=== PATIENT | female | born 1940 | race American Indian/Alaskan Native ===

== ENCOUNTER 2018-07-15 11:53 | Emergency (ER) | payer MEDICARE, OTHER ==
--- NOTE | 2018-07-15 13:38 | Emergency Department Report ---
ED General Adult HPI - General Chief complaint: Rectal Pain Stated complaint: HEMORRHOID Time Seen by Provider: 07/15/18 12:45 Source: patient, family Mode of arrival: Wheelchair Limitations: No Limitations - History of Present Illness Initial comments: Patient daughter brought her to the hospital reports patient with hemorrhoid that is chronic and hanging out and painful. She said that she wants patient to be admitted because patient has hemorrhoids and they are very painful she is also complaining that patient requires a lot of care and that she is on 1 is taking care of her and she cannot handle it and she needs to have a break so she is wondering if the patient can be admitted and treated. She said the patient was in the hospital and they should have removed her hemorrhoid but they did not and she still has hemorrhoids. She denies any rectal bleeding but reports patient with pain. Patient said pain is 10/10 and feels sore and worse with sitting or with palpation. No alleviating factor. Daughter says the patient has multiple hemorrhoid medication and pain medication at home. Patient with any vaginal bleeding or discharge. Patient denies any abdominal pain. Denies any fever or chills. Denies any cough or shortness of breath. Denies any urinary burning frequency or urgency. Patient is bilateral amputee and dependence that her daughter to take care of her. Daughter crying and so she stressed that she needs a break. MD Complaint: rectal pain due to hemorrhoid -: month(s) Location: genitals (rectum) Radiation: non-radiation Severity scale (0 -10): 10 Quality: burning, constant, other (sore) Consistency: constant Improves with: none Worsens with: other (sitting and palpation) Associated Symptoms: denies: confusion, chest pain, cough, diaphoresis, fever/ chills, headaches, loss of appetite, malaise, nausea/vomiting, rash, seizure, shortness of breath, syncope, weakness Treatments Prior to Arrival: other (pain medication and multiple hemorrhoid medication at home) - Related Data Home Medications Medication Instructions Recorded Confirmed Last Taken Folic Acid/Multivit-Min/Lutein 1 each PO DAILY 05/14/18 05/14/18 Unknown [Adult Multivitamin Gummies] Levothyroxine [Synthroid] 100 mcg PO QAM 05/14/18 05/14/18 Unknown Metoprolol Tartrate 50 mg PO DAILY 05/14/18 05/14/18 Unknown Previous Rx's Medication Instructions Recorded Last Taken Type ALBUTEROL NEB's [Proventil 0.083% 2.5 mg IH Q4HRT PRN #30 nebu 05/30/18 Unknown Rx NEBS] Aspirin [Aspirin TAB] 325 mg PO QDAY #30 tablet 05/30/18 Unknown Rx AtorvaSTATin [Lipitor] 40 mg PO QHS #30 tablet 05/30/18 Unknown Rx HYDROcodone/ACETAMINOPHEN 1 mg PO Q8HR PRN #14 tablet 05/30/18 Unknown Rx [Hydrocodone-Acetamin 10-325 mg] Ipratropium/Albuterol Sulfate 1 ampul IH Q8HRT #90 ampul.neb 05/30/18 Unknown Rx [DUONEB *Not for PRN Use*] PE/Shk Lvr/Mo/Pet,Wh [Preparation 1 applic LA Q6HR PRN #1 tube 05/30/18 Unknown Rx H] Pantoprazole [Protonix TAB] 40 mg PO QDAY #30 tablet 05/30/18 Unknown Rx Polyethylene Glycol 3350 [Miralax 17 gm PO QDAY PRN #30 powd.pack 05/30/18 Unknown Rx 3350] Allergies Allergy/AdvReac Type Severity Reaction Status Date / Time No Known Allergies Allergy Unverified 05/12/18 14:36 ED Review of Systems ROS: Stated complaint: HEMORRHOID Other details as noted in HPI Constitutional: denies: chills, fever Respiratory: denies: cough, shortness of breath, wheezing Cardiovascular: denies: chest pain, palpitations Gastrointestinal: denies: abdominal pain, nausea, vomiting, diarrhea, constipation, hematemesis, melena, hematochezia Genitourinary: other (hemorrhoids). denies: urgency, dysuria, frequency, hematuria, discharge Musculoskeletal: denies: back pain, joint swelling, arthralgia Skin: denies: rash, lesions Neurological: denies: headache, weakness ED Past Medical Hx - Past Medical History Previous Medical History?: Yes Hx Hypertension: Yes Hx Diabetes: Yes (DAUGHTER STATES TAKES METFORMIN FOR WT. LOSS ONLY-NOT DIABETIC ) Hx GERD: Yes Hx Renal Disease: Yes Hx Arthritis: Yes - Surgical History Past Surgical History?: Yes Additional Surgical History: Bilateral bilateral lower extremity amputation - Family History Family history: hypertension - Social History Smoking Status: Former Smoker Substance Use Type: None - Medications Home Medications: Home Medications Medication Instructions Recorded Confirmed Last Taken Type Folic Acid/Multivit-Min/Lutein 1 each PO DAILY 05/14/18 05/14/18 Unknown History [Adult Multivitamin Gummies] Levothyroxine [Synthroid] 100 mcg PO QAM 05/14/18 05/14/18 Unknown History Metoprolol Tartrate 50 mg PO DAILY 05/14/18 05/14/18 Unknown History ALBUTEROL NEB's [Proventil 0.083% 2.5 mg IH Q4HRT PRN #30 nebu 05/30/18 Unknown Rx NEBS] Aspirin [Aspirin TAB] 325 mg PO QDAY #30 tablet 05/30/18 Unknown Rx AtorvaSTATin [Lipitor] 40 mg PO QHS #30 tablet 05/30/18 Unknown Rx HYDROcodone/ACETAMINOPHEN 1 mg PO Q8HR PRN #14 tablet 05/30/18 Unknown Rx [Hydrocodone-Acetamin 10-325 mg] Ipratropium/Albuterol Sulfate 1 ampul IH Q8HRT #90 ampul.neb 05/30/18 Unknown Rx [DUONEB *Not for PRN Use*] PE/Shk Lvr/Mo/Pet,Wh [Preparation 1 applic LA Q6HR PRN #1 tube 05/30/18 Unknown Rx H] Pantoprazole [Protonix TAB] 40 mg PO QDAY #30 tablet 05/30/18 Unknown Rx Polyethylene Glycol 3350 [Miralax 17 gm PO QDAY PRN #30 powd.pack 05/30/18 Unknown Rx 3350] ED Physical Exam - General Limitations: No Limitations General appearance: alert, in no apparent distress - Head Head exam: Present: atraumatic, normocephalic - Neck Neck exam: Present: normal inspection - Respiratory Respiratory exam: Present: normal lung sounds bilaterally. Absent: respiratory distress - Cardiovascular Cardiovascular Exam: Present: regular rate, normal rhythm - Rectal Rectal exam: Present: other (daughter refuses inspection because she said that she wants patient to be admitted and if she is to be admitted she will take her home because she has all medications at home.) - Neurological Exam Neurological exam: Present: alert, oriented X3 - Psychiatric Psychiatric exam: Present: normal affect, normal mood ED Course Vital Signs 07/15/18 07/15/18 07/15/18 11:58 13:40 13:41 Temperature 98.1 F Pulse Rate 75 Respiratory 18 Rate Blood Pressure 105/40 Blood Pressure 110/68 [Left] O2 Sat by Pulse 97 Oximetry - Reevaluation(s) Reevaluation #1: 07/16/18 14:43 Daughter refused the patient to have a rectal exam or examine any further because she said she brought patient to the emergency room to get helped for admission because she cannot handle patient by herself at home since patient is totally dependent on her. She says that patient has hemorrhoid medication at home and she has pain medication. She was given multiple resources to follow up for help in home and for transportation home. She says she cannot get patient's to DrCelso and when she does go to a doctor to doctor juan mmped one turned the patient and he said that it did on turn patient so they are not able to look at her hemorrhoids. Patient is stable throughout ED course vital signs stable she is afebrile and nontoxic in appearance. ED Medical Decision Making - Medical Decision Making This 78-year-old female brought to the hospital by her daughter who reports that patient had hemorrhoids and she brought patient to the hospital for hemorrhoid. Patient has been here previously for care. Up and talking with her daughter she says that she is here to get patient admitted because she is tired and she thinks that the patient needs social media analyst. Patient is stable and in no acute distress. Daughter brought patient to the emergency room to be admitted because she says she is unable to take care of patient and the patient has dementia and the patient is not sleeping and she feels worn out. Patient primary care doctor is in [place] and her surgeon is in [place]. She says that when she goes to the surgeon's office for them to assess patient's hemorrhoid they can get her up on the table and the will not turn her because they said they do not do that. Denies the patient having bleeding from hemorrhoid. We discussed resources in the community and patient access services gave patient information on this social media analyst for patient to be connected for transportation. Daughter is also requesting PCP close by and I gave her referral for Dr. ASCENCIO and also . Patient has chronic hemorrhoid and daughter refused for me to do physical assessment to see her hemorrhoid. She said that she came here because she wanted patient to be admitted so patient is to be admitted so she will take patient home and she will take the information given to her and tried to involve social media analyst and get a primary care closer so Theresa will be able to take patient to her primary care doctor. She is in agreement with plan and patient discharged home and but daughter in stable condition. Vital signs are stable she is afebrile. Critical care attestation.: If time is entered above; I have spent that time in minutes in the direct care of this critically ill patient, excluding procedure time. ED Disposition Clinical Impression: Need for social media analyst intervention, External hemorrhoid Insomnia Qualifiers: Insomnia type: unspecified Qualified Code(s): G47.00 - Insomnia, unspecified Disposition: TO HOME OR SELFCARE Is pt being admited?: No Does the pt Need Aspirin: No Condition: Stable Instructions: Hemorrhoids (ED), Insomnia (ED) Additional Instructions: Please see referral to internal medicine I gave you to referral. Call tomorrow to schedule an appointment Please make sure you have patient current primary care doctor records to take to new primary care doctor. Please utilize information on social media analyst given to you. Continue to use hemorrhoid medication that you voice that you have at home for patient hemorrhoid. Referrals: PRIMARY CARE, [Primary Care Provider] - 2-3 Days LEOPOLDO HERNANDEZ MD [Staff Physician] - 2-3 Days CANDACE ASCENCIO MD [Staff Physician] - 2-3 Days [facility] [Outside] - 3-5 Days
[2018-07-15 13:41] VITALS: BP 110/68
== END 2018-07-15 14:20 | disposition home or self-care (01) ==
LOC: ED 11:53
DX: G47.00 Insomnia, unspecified (principal); K64.4 Residual hemorrhoidal skin tags; I10 Essential (primary) hypertension; E11.9 Type 2 diabetes mellitus without complications; K21.9 Gastro-esophageal reflux disease without esophagitis; M19.90 Unspecified osteoarthritis, unspecified site; Z87.891 Personal history of nicotine dependence

== ENCOUNTER 2018-07-26 15:44 | Inpatient (IN) | payer MEDICARE, OTHER ==
[2018-07-26] MEDS ORDERED: NACL 0.9% 1000 ML 1,000 ML IV ONE (17:18)
[2018-07-26 17:56] LABS: INR 1.12 (0.87-1.13); Partial Thromboplastin Time 22.1 Sec. (24.2-36.6)
[2018-07-26 18:01] LABS: Mean Corpuscular HGB Conc 29 % (30-34); Platelet Count 321 K/mm3 (140-440); Red Blood Count 2.88 M/mm3 (3.65-5.03)
[2018-07-26 18:06] LABS: Albumin 3.6 g/dL (3.9-5)
[2018-07-26 18:10] LABS: Hemoglobin 5.4 gm/dl (10.1-14.3)
[2018-07-26 18:11] LABS: Hematocrit 18.7 % (30.3-42.9); Mean Corpuscular Hemoglobin 19 pg (28-32); Mean Corpuscular Volume 65 fl (79-97); Red Cell Distribution Width 25.1 % (13.2-15.2)
[2018-07-26 19:12] LABS: Band Neutrophils # (Manual) 0.1 K/mm3; Basophils % (Manual) 0 % (0.0-1.8); Total Cells Counted 100
[2018-07-26 19:13] LABS: Anisocytosis 2+
[2018-07-26 19:14] LABS: Hypochromasia 3+; Poikilocytosis 1+
[2018-07-26 19:15] LABS: Schistocytes Few; Tear Drop Cells Few
[2018-07-26] MEDS ORDERED: NACL 0.9% 500 ML 500 ML IV ONE (19:15)
[2018-07-26 19:18] LABS: Platelet Estimate Consistent w Auto; Target Cells Few
--- NOTE | 2018-07-26 19:18 | Emergency Department Report ---
- General Chief complaint: Weakness Stated complaint: GENERAL WEAKNESS Time Seen by Provider: 07/26/18 19:05 Source: family Mode of arrival: Stretcher Limitations: Altered Mental Status - History of Present Illness Initial comments: 78-year-old female with a past medical history of hypertension, dementia, CVA with right hemiparesis and bilateral BKA secondary to PVD presents to the hospital with anemia. Patient was seen by primary care doctor Dr. Nicky Armendariz and lab work is obtained. Patient was subsequently found to have a hemoglobin of 5. Patient recently admitted to the hospital in April for altered mental status, right carotid stenosis, and was placed on aspirin and Plavix. She developed anemia during admission. GI evaluated with EGD which was negative except for hiatal hernia and she had a colonoscopy which showed a large external hemorrhoid which was snared. She received blood transfusion prior to discharge and Plavix was discontinued with plan to continue aspirin. Daughter also has several social concerns about her ability to care for the patient at home and need for senior living placement. She saw Dr. Munoz in the office recently prior to M.D. visit. Daughter states that since her discharge in April patient seems to indicate that her stomach hurt after any food or liquid intake. Severity scale (0 -10): 0 - Related Data Home Medications Medication Instructions Recorded Confirmed Last Taken Levothyroxine [Synthroid] 100 mcg PO QAM 05/14/18 05/14/18 Unknown Metoprolol Tartrate 50 mg PO DAILY 05/14/18 05/14/18 Unknown Ipratropium/Albuterol Sulfate 1 ampul IH Q8HRT PRN 07/26/18 07/26/18 Unknown [DUONEB *Not for PRN Use*] Previous Rx's Medication Instructions Recorded Last Taken Type Aspirin [Aspirin TAB] 325 mg PO QDAY #30 tablet 05/30/18 Unknown Rx HYDROcodone/ACETAMINOPHEN 1 mg PO Q8HR PRN #14 tablet 05/30/18 Unknown Rx [Hydrocodone-Acetamin 10-325 mg] Pantoprazole [Protonix TAB] 40 mg PO QDAY #30 tablet 05/30/18 Unknown Rx Allergies Allergy/AdvReac Type Severity Reaction Status Date / Time No Known Allergies Allergy Unverified 05/12/18 14:36 ED Review of Systems ROS: Stated complaint: GENERAL WEAKNESS Other details as noted in HPI Comment: All other systems reviewed and negative ED Past Medical Hx - Past Medical History Hx Hypertension: Yes Hx Diabetes: Yes (DAUGHTER STATES TAKES METFORMIN FOR WT. LOSS ONLY-NOT DIABETIC ) Hx GERD: Yes Hx Renal Disease: Yes Hx Arthritis: Yes - Surgical History Additional Surgical History: Bilateral bilateral lower extremity amputation - Social History Smoking Status: Never Smoker Substance Use Type: None - Medications Home Medications: Home Medications Medication Instructions Recorded Confirmed Last Taken Type Levothyroxine [Synthroid] 100 mcg PO QAM 05/14/18 05/14/18 Unknown History Metoprolol Tartrate 50 mg PO DAILY 05/14/18 05/14/18 Unknown History Aspirin [Aspirin TAB] 325 mg PO QDAY #30 tablet 05/30/18 Unknown Rx HYDROcodone/ACETAMINOPHEN 1 mg PO Q8HR PRN #14 tablet 05/30/18 Unknown Rx [Hydrocodone-Acetamin 10-325 mg] Pantoprazole [Protonix TAB] 40 mg PO QDAY #30 tablet 05/30/18 Unknown Rx Ipratropium/Albuterol Sulfate 1 ampul IH Q8HRT PRN 07/26/18 07/26/18 Unknown History [DUONEB *Not for PRN Use*] ED Physical Exam - General Limitations: Altered Mental Status - Other Other exam information: General: No limitations, patient is alert in no acute distress Head exam: Atraumatic, normocephalic Eyes exam: Normal appearance, ENT: Moist mucous membrane, normal oropharynx Neck exam: Normal inspection, full range of motion, no meningismus nontender Respiratory exam: Clear to auscultation bilateral, no wheezes, rales, crackles Cardiovascular: Normal rate and rhythm, normal heart sounds Abdomen: Soft, nondistended, and nontender, with normal bowel sounds, no rebound, or guarding Rectal: External hemorrhoid without bleeding. Brown stool. Guaiac positive without gross blood or melena Extremity: Bilateral AKA Back: Normal Inspection, full range of motion, no tenderness Neurologic: Demented, chronic right-sided weakness Psychiatric: normal affect, normal mood Skin: Warm, dry, intact ED Course Vital Signs 07/26/18 07/26/18 07/26/18 16:58 17:14 19:15 Temperature 98.3 F 98.3 F 97.9 F Pulse Rate 71 71 70 Respiratory 20 20 16 Rate Blood Pressure 106/42 Blood Pressure 106/42 148/45 [Left] O2 Sat by Pulse 100 100 99 Oximetry ED Medical Decision Making - Lab Data Result diagrams: 07/26/18 17:34 07/26/18 17:34 Lab Results 07/26/18 07/26/18 07/26/18 Range/Units 17:32 17:34 17:34 WBC 12.9 H (4.5-11.0) K/mm3 RBC 2.88 L (3.65-5.03) M/mm3 Hgb 5.4 L* (10.1-14.3) gm/dl Hct 18.7 L* (30.3-42.9) % MCV 65 L (79-97) fl MCH 19 L (28-32) pg MCHC 29 L (30-34) % RDW 25.1 H (13.2-15.2) % Plt Count 321 (140-440) K/mm3 Lymph % (Auto) [employer] Permit Agent [place] % (Auto) [employer]ing Permit Agent Eos % (Auto) [employer] Permit Agent Baso % (Auto) [employer] Permit Agent Lymph # [employer] Permit Agent [place] # [employer] Permit Agent Eos # [employer] Permit Agent Baso # [employer] Permit Agent Add Manual Diff Complete Total Counted 100 Seg Neutrophils % [employer] Permit Agent Seg Neuts % (Manual) 80.0 H (40.0-70.0) % Band Neutrophils % 1.0 % Lymphocytes % (Manual) 13.0 L (13.4-35.0) % Reactive Lymphs % (Man) 0 % Monocytes % (Manual) 4.0 (0.0-7.3) % Eosinophils % (Manual) 2.0 (0.0-4.3) % Basophils % (Manual) 0 (0.0-1.8) % Metamyelocytes % 0 % Myelocytes % 0 % Promyelocytes % 0 % Blast Cells % 0 % Nucleated RBC % 1.0 H (0.0-0.9) % Seg Neutrophils # [employer] Permit Agent Seg Neutrophils # Man 10.3 H (1.8-7.7) K/mm3 Band Neutrophils # 0.1 K/mm3 Lymphocytes # (Manual) 1.7 (1.2-5.4) K/mm3 Abs React Lymphs (Man) 0.0 K/mm3 Monocytes # (Manual) 0.5 (0.0-0.8) K/mm3 Eosinophils # (Manual) 0.3 (0.0-0.4) K/mm3 Basophils # (Manual) 0.0 (0.0-0.1) K/mm3 Metamyelocytes # 0.0 K/mm3 Myelocytes # 0.0 K/mm3 Promyelocytes # 0.0 K/mm3 Blast Cells # 0.0 K/mm3 WBC Morphology Not Reportable Hypersegmented Neuts Not Reportable Hyposegmented Neuts Not Reportable Hypogranular Neuts Not Reportable Smudge Cells Not Reportable Toxic Granulation Not Reportable Toxic Vacuolation Not Reportable Dohle Bodies Not Reportable Pelger-Huet Anomaly Not Reportable Bharti Rods Not Reportable Platelet Estimate Consistent w auto Clumped Platelets Not Reportable Plt Clumps, EDTA Not Reportable Large Platelets Not Reportable Giant Platelets Not Reportable Platelet Satelliting Not Reportable Plt Morphology Comment Not Reportable RBC Morphology Not Reportable Dimorphic RBCs Not Reportable Polychromasia Few Hypochromasia 3+ Poikilocytosis 1+ Anisocytosis 2+ Microcytosis 3+ Macrocytosis Not Reportable Spherocytes Not Reportable Pappenheimer Bodies Not Reportable Sickle Cells Not Reportable Target Cells Few Tear Drop Cells Few Ovalocytes Not Reportable Helmet Cells Not Reportable [place] Bodies Not Reportable [place] Rings Not Reportable [place] Cells Not Reportable Bite Cells Not Reportable Crenated Cell Not Reportable Elliptocytes 1+ Acanthocytes (Spur) Not Reportable Rouleaux Not Reportable Hemoglobin C Crystals Not Reportable Schistocytes Few Malaria parasites Not Reportable Lui Bodies Not Reportable Hem Pathologist Commnt No PT 15.0 H (12.2-14.9) Sec. INR 1.12 (0.87-1.13) APTT 22.1 L (24.2-36.6) Sec. Sodium (137-145) mmol/L Potassium (3.6-5.0) mmol/L Chloride (98-107) mmol/L Carbon Dioxide (22-30) mmol/L Anion Gap mmol/L BUN (7-17) mg/dL Creatinine (0.7-1.2) mg/dL Estimated GFR ml/min BUN/Creatinine Ratio % Glucose (65-100) mg/dL Calcium (8.4-10.2) mg/dL Total Bilirubin (0.1-1.2) mg/dL AST (5-40) units/L ALT (7-56) units/L Alkaline Phosphatase (35-129) units/L Total Protein (6.3-8.2) g/dL Albumin (3.9-5) g/dL Albumin/Globulin Ratio % Blood Type A POSITIVE Antibody Screen Negative Crossmatch See Detail 07/26/18 Range/Units 17:34 WBC (4.5-11.0) K/mm3 RBC (3.65-5.03) M/mm3 Hgb (10.1-14.3) gm/dl Hct (30.3-42.9) % MCV (79-97) fl MCH (28-32) pg MCHC (30-34) % RDW (13.2-15.2) % Plt Count (140-440) K/mm3 Lymph % (Auto) [place] % (Auto) Eos % (Auto) Baso % (Auto) Lymph # [place] # Eos # Baso # Add Manual Diff Total Counted Seg Neutrophils % Seg Neuts % (Manual) (40.0-70.0) % Band Neutrophils % % Lymphocytes % (Manual) (13.4-35.0) % Reactive Lymphs % (Man) % Monocytes % (Manual) (0.0-7.3) % Eosinophils % (Manual) (0.0-4.3) % Basophils % (Manual) (0.0-1.8) % Metamyelocytes % % Myelocytes % % Promyelocytes % % Blast Cells % % Nucleated RBC % (0.0-0.9) % Seg Neutrophils # Seg Neutrophils # Man (1.8-7.7) K/mm3 Band Neutrophils # K/mm3 Lymphocytes # (Manual) (1.2-5.4) K/mm3 Abs React Lymphs (Man) K/mm3 Monocytes # (Manual) (0.0-0.8) K/mm3 Eosinophils # (Manual) (0.0-0.4) K/mm3 Basophils # (Manual) (0.0-0.1) K/mm3 Metamyelocytes # K/mm3 Myelocytes # K/mm3 Promyelocytes # K/mm3 Blast Cells # K/mm3 WBC Morphology Hypersegmented Neuts Hyposegmented Neuts Hypogranular Neuts Smudge Cells Toxic Granulation Toxic Vacuolation Dohle Bodies Pelger-Huet Anomaly Bharti Rods Platelet Estimate Clumped Platelets Plt Clumps, EDTA Large Platelets Giant Platelets Platelet Satelliting Plt Morphology Comment RBC Morphology Dimorphic RBCs Polychromasia Hypochromasia Poikilocytosis Anisocytosis Microcytosis Macrocytosis Spherocytes Pappenheimer Bodies Sickle Cells Target Cells Tear Drop Cells Ovalocytes Helmet Cells [place] Bodies [place] Rings [place] Cells Bite Cells Crenated Cell Elliptocytes Acanthocytes (Spur) Rouleaux Hemoglobin C Crystals Schistocytes Malaria parasites Lui Bodies Hem Pathologist Commnt PT (12.2-14.9) Sec. INR (0.87-1.13) APTT (24.2-36.6) Sec. Sodium 138 (137-145) mmol/L Potassium 4.5 (3.6-5.0) mmol/L Chloride 103.2 (98-107) mmol/L Carbon Dioxide 22 (22-30) mmol/L Anion Gap 17 mmol/L BUN 53 H (7-17) mg/dL Creatinine 1.8 H (0.7-1.2) mg/dL Estimated GFR 33 ml/min BUN/Creatinine Ratio 29 % Glucose 123 H (65-100) mg/dL Calcium 10.0 (8.4-10.2) mg/dL Total Bilirubin 0.60 (0.1-1.2) mg/dL AST 23 (5-40) units/L ALT 26 (7-56) units/L Alkaline Phosphatase 90 (35-129) units/L Total Protein 7.5 (6.3-8.2) g/dL Albumin 3.6 L (3.9-5) g/dL Albumin/Globulin Ratio 0.9 % Blood Type Antibody Screen Crossmatch - EKG Data -: EKG Interpreted by [place] EKG shows normal: sinus rhythm, axis (qrs 27), QRS complexes (qrsd 92), ST-T waves (no stemi/t inv) Rate: normal (27) - Medical Decision Making Plan to admit this to the hospital for blood transfusion. 2 units of PRBCs ordered. Positive stool without gross blood or melena. GI consultation ordered. Patient also noted to have worsening renal function. Daughter states is social concerns regarding possible senior living placement which she says has been initiated by her PMD - Differential Diagnosis gi bleed and iron deficiency anemia, anemia of chronic disease Critical Care Time: No Critical care attestation.: If time is entered above; I have spent that time in minutes in the direct care of this critically ill patient, excluding procedure time. ED Disposition Clinical Impression: Anemia, Dementia, Need for renal social worker intervention, Guaiac positive stools , External hemorrhoid, Diabetes, Acute kidney insufficiency Disposition: OP ADMIT IP TO THIS HOSP Is pt being admited?: Yes Condition: Stable Time of Disposition: 19:18 (Dr Zacarias/hosp)
[2018-07-26] MEDS ORDERED: NACL 0.9% 500 ML 500 ML ONE (20:20)
[2018-07-26] MEDS ORDERED: TYLENOL PO PRN ×2 (22:55→22:59)
[2018-07-26] MEDS ORDERED: ZOFRAN IV PRN ×2 (22:55→22:59)
[2018-07-26] MEDS ORDERED: AMBIEN PO PRN (22:55)
[2018-07-26] MEDS ORDERED: MORPHINE IV PRN (22:55)
[2018-07-26] MEDS ORDERED: DILAUDID IV PRN (22:55)
--- NOTE | 2018-07-26 22:55 | History and Physical Report ---
History of Present Illness Date of examination: 07/26/18 Date of admission: 07/26/18 19:28 Chief complaint: cc Low hemoglobin count of 5--sent from PCP office History of present illness: History of Present Illness 78-year-old female with a past medical history of hypertension, dementia, CVA with right hemiparesis and bilateral BKA secondary to PVD presents to the hospital with anemia. Patient was seen by primary care doctor Dr. Nicky Armendariz and lab work is obtained. Patient was subsequently found to have a hemoglobin of 5. Patient recently admitted to the hospital in April for altered mental status, right carotid stenosis, and was placed on aspirin and Plavix. She developed anemia during admission. GI evaluated with EGD which was negative except for hiatal hernia and she had a colonoscopy which showed a large external hemorrhoid which was snared. She received blood transfusion prior to discharge and Plavix was discontinued with plan to continue aspirin. Daughter also has several social concerns about her ability to care for the patient at home and need for fpc placement. She saw Dr. Munoz in the office recently prior to M.D. visit. Daughter states that since her discharge in April patient seems to indicate that her stomach hurt after any food or liquid intake. Past Medical History Hx Hypertension: Yes Hx Diabetes: Yes (DAUGHTER STATES TAKES METFORMIN FOR WT. LOSS ONLY-NOT DIABETIC ) Hx GERD: Yes Hx Renal Disease: Yes Hx Arthritis: Yes Surgical History Additional Surgical History: Bilateral bilateral lower extremity amputation Social History Smoking Status: Never Smoker Substance Use Type: None Family history Htn - Medications Home Medications: Home Medications Medication Instructions Recorded Confirmed Last Taken Type Levothyroxine [Synthroid] 100 mcg PO QAM 05/14/18 05/14/18 Unknown History Metoprolol Tartrate 50 mg PO DAILY 05/14/18 05/14/18 Unknown History Aspirin [Aspirin TAB] 325 mg PO QDAY #30 tablet 05/30/18 Unknown Rx HYDROcodone/ACETAMINOPHEN 1 mg PO Q8HR PRN #14 tablet 05/30/18 Unknown Rx [Hydrocodone-Acetamin 10-325 mg] Pantoprazole [Protonix TAB] 40 mg PO QDAY #30 tablet 05/30/18 Unknown Rx Ipratropium/Albuterol Sulfate 1 ampul IH Q8HRT PRN 07/26/18 07/26/18 Unknown History [DUONEB *Not for PRN Use*] Review of Systems ROS: Stated complaint: GENERAL WEAKNESS Other details as noted in HPI Comment: All other systems reviewed and negative Medications and Allergies Allergies Allergy/AdvReac Type Severity Reaction Status Date / Time No Known Allergies Allergy Unverified 05/12/18 14:36 Home Medications Medication Instructions Recorded Confirmed Last Taken Type Levothyroxine [Synthroid] 100 mcg PO QAM 05/14/18 07/26/18 Unknown History Metoprolol Tartrate 50 mg PO DAILY 05/14/18 07/26/18 Unknown History Aspirin [Aspirin TAB] 325 mg PO QDAY #30 tablet 05/30/18 07/26/18 Unknown Rx HYDROcodone/ACETAMINOPHEN 1 mg PO Q8HR PRN #14 tablet 05/30/18 07/26/18 Unknown Rx [Hydrocodone-Acetamin 10-325 mg] Pantoprazole [Protonix TAB] 40 mg PO QDAY #30 tablet 05/30/18 07/26/18 Unknown Rx Ipratropium/Albuterol Sulfate 1 ampul IH Q8HRT PRN 07/26/18 07/26/18 Unknown History [DUONEB *Not for PRN Use*] Mirtazapine 30 mg PO QHS 07/26/18 07/26/18 Unknown History Triamter/Hctz 37.5-25 mg 1 tab PO QDAY 07/26/18 07/26/18 Unknown History [Maxzide-25] Exam - Constitutional Vitals: Temp Pulse Resp BP Pulse Ox 97.9 F 68 16 124/51 98 07/26/18 22:00 07/26/18 22:00 07/26/18 22:00 07/26/18 22:00 07/26/18 22:00 General appearance: Present: no acute distress, well-nourished - EENT Eyes: Present: PERRL ENT: hearing intact, clear oral mucosa - Neck Neck: Present: supple, normal ROM - Respiratory Respiratory effort: normal Respiratory: bilateral: CTA - Cardiovascular Heart rate: 63 Rhythm: regular Heart Sounds: Present: S1 & S2. Absent: rub, click - Extremities Extremities: no ischemia, pulses intact, pulses symmetrical, No edema, abnormal (bilaterally Above knee amputation) Peripheral Pulses: within normal limits - Abdominal General gastrointestinal: Present: soft, non-tender, non-distended, normal bowel sounds Female genitourinary: Present: normal - Rectal Rectal Exam: deferred, other (occult blood positive) - Integumentary Integumentary: Present: clear, warm, dry - Musculoskeletal Musculoskeletal: gait normal, strength equal bilaterally - Psychiatric Psychiatric: appropriate mood/affect, intact judgment & insight - Neurologic Neurologic: CNII-XII intact, moves all extremities - Allied Health Allied health notes reviewed: nursing, case management Results - Labs CBC & Chem 7: 07/26/18 17:34 07/26/18 17:34 Labs: Laboratory Last Values WBC 12.9 K/mm3 (4.5-11.0) H 07/26/18 17:34 RBC 2.88 M/mm3 (3.65-5.03) L 07/26/18 17:34 Hgb 5.4 gm/dl (10.1-14.3) L* 07/26/18 17:34 Hct 18.7 % (30.3-42.9) L* 07/26/18 17:34 MCV 65 fl (79-97) L 07/26/18 17:34 MCH 19 pg (28-32) L 07/26/18 17:34 MCHC 29 % (30-34) L 07/26/18 17:34 RDW 25.1 % (13.2-15.2) H 07/26/18 17:34 Plt Count 321 K/mm3 (140-440) 07/26/18 17:34 Lymph % (Auto) Chipper Operator 07/26/18 17:34 Kerr % (Auto) Chipper Operator 07/26/18 17:34 Eos % (Auto) Chipper Operator 07/26/18 17:34 Baso % (Auto) Chipper Operator 07/26/18 17:34 Lymph # Chipper Operator 07/26/18 17:34 Kerr # Chipper Operator 07/26/18 17:34 Eos # Chipper Operator 07/26/18 17:34 Baso # Chipper Operator 07/26/18 17:34 Add Manual Diff Complete 07/26/18 17:34 Total Counted 100 07/26/18 17:34 Seg Neutrophils % Chipper Operator 07/26/18 17:34 Seg Neuts % (Manual) 80.0 % (40.0-70.0) H 07/26/18 17:34 Band Neutrophils % 1.0 % 07/26/18 17:34 Lymphocytes % (Manual) 13.0 % (13.4-35.0) L 07/26/18 17:34 Reactive Lymphs % (Man) 0 % 07/26/18 17:34 Monocytes % (Manual) 4.0 % (0.0-7.3) 07/26/18 17:34 Eosinophils % (Manual) 2.0 % (0.0-4.3) 07/26/18 17:34 Basophils % (Manual) 0 % (0.0-1.8) 07/26/18 17:34 Metamyelocytes % 0 % 07/26/18 17:34 Myelocytes % 0 % 07/26/18 17:34 Promyelocytes % 0 % 07/26/18 17:34 Blast Cells % 0 % 07/26/18 17:34 Nucleated RBC % 1.0 % (0.0-0.9) H 07/26/18 17:34 Seg Neutrophils # Chipper Operator 07/26/18 17:34 Seg Neutrophils # Man 10.3 K/mm3 (1.8-7.7) H 07/26/18 17:34 Band Neutrophils # 0.1 K/mm3 07/26/18 17:34 Lymphocytes # (Manual) 1.7 K/mm3 (1.2-5.4) 07/26/18 17:34 Abs React Lymphs (Man) 0.0 K/mm3 07/26/18 17:34 Monocytes # (Manual) 0.5 K/mm3 (0.0-0.8) 07/26/18 17:34 Eosinophils # (Manual) 0.3 K/mm3 (0.0-0.4) 07/26/18 17:34 Basophils # (Manual) 0.0 K/mm3 (0.0-0.1) 07/26/18 17:34 Metamyelocytes # 0.0 K/mm3 07/26/18 17:34 Myelocytes # 0.0 K/mm3 07/26/18 17:34 Promyelocytes # 0.0 K/mm3 07/26/18 17:34 Blast Cells # 0.0 K/mm3 07/26/18 17:34 WBC Morphology Not Reportable 07/26/18 17:34 Hypersegmented Neuts Not Reportable 07/26/18 17:34 Hyposegmented Neuts Not Reportable 07/26/18 17:34 Hypogranular Neuts Not Reportable 07/26/18 17:34 Smudge Cells Not Reportable 07/26/18 17:34 Toxic Granulation Not Reportable 07/26/18 17:34 Toxic Vacuolation Not Reportable 07/26/18 17:34 Dohle Bodies Not Reportable 07/26/18 17:34 Pelger-Huet Anomaly Not Reportable 07/26/18 17:34 Bharti Rods Not Reportable 07/26/18 17:34 Platelet Estimate Consistent w auto 07/26/18 17:34 Clumped Platelets Not Reportable 07/26/18 17:34 Plt Clumps, EDTA Not Reportable 07/26/18 17:34 Large Platelets Not Reportable 07/26/18 17:34 Giant Platelets Not Reportable 07/26/18 17:34 Platelet Satelliting Not Reportable 07/26/18 17:34 Plt Morphology Comment Not Reportable 07/26/18 17:34 RBC Morphology Not Reportable 07/26/18 17:34 Dimorphic RBCs Not Reportable 07/26/18 17:34 Polychromasia Few 07/26/18 17:34 Hypochromasia 3+ 07/26/18 17:34 Poikilocytosis 1+ 07/26/18 17:34 Anisocytosis 2+ 07/26/18 17:34 Microcytosis 3+ 07/26/18 17:34 Macrocytosis Not Reportable 07/26/18 17:34 Spherocytes Not Reportable 07/26/18 17:34 Pappenheimer Bodies Not Reportable 07/26/18 17:34 Sickle Cells Not Reportable 07/26/18 17:34 Target Cells Few 07/26/18 17:34 Tear Drop Cells Few 07/26/18 17:34 Ovalocytes Not Reportable 07/26/18 17:34 Helmet Cells Not Reportable 07/26/18 17:34 Vidal-Accident Bodies Not Reportable 07/26/18 17:34 [place] Rings Not Reportable 07/26/18 17:34 [place] Cells Not Reportable 07/26/18 17:34 Bite Cells Not Reportable 07/26/18 17:34 Crenated Cell Not Reportable 07/26/18 17:34 Elliptocytes 1+ 07/26/18 17:34 Acanthocytes (Spur) Not Reportable 07/26/18 17:34 Rouleaux Not Reportable 07/26/18 17:34 Hemoglobin C Crystals Not Reportable 07/26/18 17:34 Schistocytes Few 07/26/18 17:34 Malaria parasites Not Reportable 07/26/18 17:34 Lui Bodies Not Reportable 07/26/18 17:34 Hem Pathologist Commnt No 07/26/18 17:34 PT 15.0 Sec. (12.2-14.9) H 07/26/18 17:34 INR 1.12 (0.87-1.13) 07/26/18 17:34 APTT 22.1 Sec. (24.2-36.6) L 07/26/18 17:34 Sodium 138 mmol/L (137-145) 07/26/18 17:34 Potassium 4.5 mmol/L (3.6-5.0) 07/26/18 17:34 Chloride 103.2 mmol/L (98-107) 07/26/18 17:34 Carbon Dioxide 22 mmol/L (22-30) 07/26/18 17:34 Anion Gap 17 mmol/L 07/26/18 17:34 BUN 53 mg/dL (7-17) H 07/26/18 17:34 Creatinine 1.8 mg/dL (0.7-1.2) H 07/26/18 17:34 Estimated GFR 33 ml/min 07/26/18 17:34 BUN/Creatinine Ratio 29 % 07/26/18 17:34 Glucose 123 mg/dL (65-100) H 07/26/18 17:34 Calcium 10.0 mg/dL (8.4-10.2) 07/26/18 17:34 Total Bilirubin 0.60 mg/dL (0.1-1.2) 07/26/18 17:34 AST 23 units/L (5-40) 07/26/18 17:34 ALT 26 units/L (7-56) 07/26/18 17:34 Alkaline Phosphatase 90 units/L (35-129) 07/26/18 17:34 Total Protein 7.5 g/dL (6.3-8.2) 07/26/18 17:34 Albumin 3.6 g/dL (3.9-5) L 07/26/18 17:34 Albumin/Globulin Ratio 0.9 % 09/27/18 17:34 Blood Type A POSITIVE 07/26/18 17:32 Antibody Screen Negative 07/26/18 17:32 Crossmatch See Detail 07/26/18 17:32 - Imaging and Cardiology EKG: report reviewed (normal sinus rhythm and heart rate of 63/m) Assessment and Plan Advance Directives: Yes (full code) VTE prophylaxis?: Mechanical Plan of care discussed with patient/family: Yes - Patient Problems (1) Symptomatic anemia Current Visit: Yes Status: Acute Plan to address problem: Transfuse 2 units of blood-padded blood cells Patient had GI workup recently Will defer to gastroenterology IV Protonix started (2) Acute kidney injury Current Visit: Yes Status: Acute Plan to address problem: IV fluids for now Vasomotor nephropathy (3) Hypertension Current Visit: Yes Status: Chronic Qualifiers: Hypertension type: essential hypertension Qualified Code(s): I10 - Essential (primary) hypertension Plan to address problem: We will initiate on Catapres patch Hold her oral antihypertensives (4) Hypothyroidism Current Visit: Yes Status: Chronic Qualifiers: Hypothyroidism type: acquired Qualified Code(s): E03.9 - Hypothyroidism, unspecified Plan to address problem: Hold Synthroid for a couple of days. If necessary give IV thyroxine (5) COPD (chronic obstructive pulmonary disease) Current Visit: Yes Status: Chronic Qualifiers: COPD type: unspecified COPD Qualified Code(s): J44.9 - Chronic obstructive pulmonary disease, unspecified Plan to address problem: Continue duo nebs (6) DVT prophylaxis Current Visit: Yes Status: Acute Plan to address problem: SCDs GI prophylaxis
[2018-07-26] MEDS ORDERED: DUONEB *Not for PRN Use IH (22:56)
[2018-07-26] MEDS ORDERED: SODIUM CHLORIDE FLUSH SYRINGE 10 ML IV PRN (22:59)
[2018-07-26] MEDS ORDERED: NACL 0.9% 1000 ML 1,000 ML IV SCH (23:00)
[2018-07-26] MEDS ORDERED: PROVENTIL IH PRN (23:24)
[2018-07-27] MEDS: HumaLOG SUB-Q SCH ×3 (00:48→13:00)
[2018-07-27 05:52] LABS: Hematocrit 26.2 % (30.3-42.9); Hemoglobin 8.3 gm/dl (10.1-14.3); Mean Corpuscular HGB Conc 32 % (30-34); Mean Corpuscular Volume 71 fl (79-97); Platelet Count 266 K/mm3 (140-440); Red Blood Count 3.69 M/mm3 (3.65-5.03)
[2018-07-27] MEDS: NACL 0.9% 1000 ML 1,000 ML IV SCH (05:54)
[2018-07-27 05:56] LABS: Mean Corpuscular Hemoglobin 23 pg (28-32); Red Cell Distribution Width 25.2 % (13.2-15.2)
[2018-07-27 06:25] LABS: Albumin 3.5 g/dL (3.9-5); Calcium 9.8 mg/dL (8.4-10.2)
[2018-07-27 08:01] LABS: Eosinophils % (Manual) 0 % (0.0-4.3); Total Cells Counted 100
[2018-07-27 08:02] LABS: Acanthocytes Rare; Anisocytosis 1+; Hypochromasia 1+; Poikilocytosis 1+
[2018-07-27 08:05] LABS: Ovalocytes Rare; Platelet Estimate Consistent w Auto; Tear Drop Cells Rare
[2018-07-27] MEDS ORDERED: SODIUM CHLORIDE FLUSH SYRINGE 10 ML IV SCH ×2 (10:00)
[2018-07-27] MEDS ORDERED: CATAPRES-TTS PATCH TD SCH (10:00)
--- NOTE | 2018-07-27 10:50 | Gastroenterology Consultation ---
<AQUILES PETER - Last Filed: 07/27/18 11:32> History of Present Illness - Reason for Consult Consult date: 07/27/18 anemia Requesting physician: MARY CARMEN BOLAND - History of Present Illness Patient is a 78 y/o female with PMH of HTN, arthritis, DM, dementia, PVD (s/p bilateral BKA), and recent CVA due to carotid stenosis with right endarterectomy on 05/23/18 who was sent from PCP office for evaluation after routine blood work revealed a hemoglobin of 5 to which GI has been consulted. This morning patient was resting in bed w/o acute distress but noted to be somnolent and confused with inability to provide history. History was obtained via chart review and by daughter who was at the bedside. Daughter states patient 's mental status has been declining recently to the point where she is having difficulty eating with noted choking with solids but drinks liquids (ensure) w/ o any complaints. She reports patient having some rectal bleeding with bright red blood a few days after hospitalization in April/May secondary to an external hemorrhoid that has since resolved after treatment with suppositories with no signs of active bleeding recently. No hematemesis or melena. States her mother previously had c/o abd pain but no N/V, diarrhea, or constipation. Abd CT 05/27 unremarkable. Patient is previously known to our service for similar symptoms with undergoing an EGD on 05/28/18 and a colonoscopy on 05/30/18 that did not reveal a source of bleeding. Takes Plavix and ASA at home with last dose yesterday. No active bleeding since admission per nursing. Upon exam, there was brown stool noted in diaper and a large external hemorrhoid w/o bleeding. Past History Past Medical History: arthritis, diabetes, hypertension, PVD, stroke, other ( dementia) Past Surgical History: cholecystectomy, hysterectomy, Other (BLE Amputation, right endarterectomy on 05/23/18) Social history: lives with family. denies: smoking, alcohol abuse Medications and Allergies Allergies Allergy/AdvReac Type Severity Reaction Status Date / Time No Known Allergies Allergy Unverified 05/12/18 14:36 Home Medications Medication Instructions Recorded Confirmed Last Taken Type Levothyroxine [Synthroid] 100 mcg PO QAM 05/14/18 07/26/18 Unknown History Metoprolol Tartrate 50 mg PO DAILY 05/14/18 07/26/18 Unknown History Aspirin [Aspirin TAB] 325 mg PO QDAY #30 tablet 05/30/18 07/26/18 Unknown Rx HYDROcodone/ACETAMINOPHEN 1 mg PO Q8HR PRN #14 tablet 05/30/18 07/26/18 Unknown Rx [Hydrocodone-Acetamin 10-325 mg] Pantoprazole [Protonix TAB] 40 mg PO QDAY #30 tablet 05/30/18 07/26/18 Unknown Rx Ipratropium/Albuterol Sulfate 1 ampul IH Q8HRT PRN 07/26/18 07/26/18 Unknown History [DUONEB *Not for PRN Use*] Mirtazapine 30 mg PO QHS 07/26/18 07/26/18 Unknown History Triamter/Hctz 37.5-25 mg 1 tab PO QDAY 07/26/18 07/26/18 Unknown History [Maxzide-25] Active Meds: Active Medications Acetaminophen (Tylenol) 650 mg PO Q4H PRN PRN Reason: Pain MILD(1-3)/Fever >100.5/SCANLON Albuterol (Proventil) 2.5 mg IH Q4HRT PRN PRN Reason: Shortness Of Breath Clonidine HCl (Catapres-Tts Patch) 0.2 mg TD Fr AIDA Hydromorphone HCl (Dilaudid) 0.5 mg IV Q3H PRN PRN Reason: Pain , Severe (7-10) Last Admin: 07/27/18 00:58 Dose: 0.5 mg Sodium Chloride (Nacl 0.9% 1000 Ml) 1,000 mls @ 75 mls/hr IV DIRECT AIDA Last Admin: 07/27/18 05:54 Dose: 75 mls/hr Insulin Human Lispro (Humalog) 0 unit SUB-Q Q6HR IADA; Protocol Last Admin: 07/27/18 05:54 Dose: Not Given Morphine Sulfate (Morphine) 2 mg IV Q4H PRN PRN Reason: Pain, Moderate (4-6) Ondansetron HCl (Zofran) 4 mg IV Q8H PRN PRN Reason: Nausea And Vomiting Last Admin: 07/27/18 00:58 Dose: 4 mg Sodium Chloride (Sodium Chloride Flush Syringe 10 Ml) 10 ml IV BID AIDA Last Admin: 07/27/18 10:27 Dose: 10 ml Sodium Chloride (Sodium Chloride Flush Syringe 10 Ml) 10 ml IV PRN PRN PRN Reason: LINE FLUSH Zolpidem Tartrate (Ambien) 5 mg PO QHS PRN PRN Reason: Insomnia Review of Systems - Review of Systems ROS unobtainable: due to mental status Exam - Constitutional Vital Signs: Temp Pulse Resp BP Pulse Ox 98.0 F 74 20 139/33 91 07/27/18 07:35 07/27/18 07:38 07/27/18 07:35 07/27/18 07:35 07/27/18 07:38 General appearance: no acute distress, other (somnolent) - Respiratory Respiratory: bilateral: diminished (anterior) - Cardiovascular Rhythm: regular Heart Sounds: Present: S1 & S2 - Gastrointestinal General gastrointestinal: Present: soft, non-distended, normal bowel sounds, other (obese) Rectal Exam: other (brown stool in diaper, large external hemorrhoid (wood cabinetmaker Arin patient's nurse during exam)) - Musculoskeletal Musculoskeletal: other (BLE amputation) - Neurologic Neurological: other (confused) - Labs CBC & Chem 7: 07/27/18 04:48 07/27/18 04:48 Lab Results: Laboratory Results - last 24 hr 07/26/18 07/26/18 07/26/18 17:32 17:34 17:34 WBC 12.9 H RBC 2.88 L Hgb 5.4 L* Hct 18.7 L* MCV 65 L MCH 19 L MCHC 29 L RDW 25.1 H Plt Count 321 Lymph % (Auto) Electricity Trader Schley % (Auto) Electricity Trader Eos % (Auto) Electricity Trader Baso % (Auto) Electricity Trader Lymph # Electricity Trader Schley # Electricity Trader Eos # Electricity Trader Baso # Electricity Trader Add Manual Diff Complete Total Counted 100 Seg Neutrophils % Electricity Trader Seg Neuts % (Manual) 80.0 H Band Neutrophils % 1.0 Lymphocytes % (Manual) 13.0 L Reactive Lymphs % (Man) 0 Monocytes % (Manual) 4.0 Eosinophils % (Manual) 2.0 Basophils % (Manual) 0 Metamyelocytes % 0 Myelocytes % 0 Promyelocytes % 0 Blast Cells % 0 Nucleated RBC % 1.0 H Seg Neutrophils # Electricity Trader Seg Neutrophils # Man 10.3 H Band Neutrophils # 0.1 Lymphocytes # (Manual) 1.7 Abs React Lymphs (Man) 0.0 Monocytes # (Manual) 0.5 Eosinophils # (Manual) 0.3 Basophils # (Manual) 0.0 Metamyelocytes # 0.0 Myelocytes # 0.0 Promyelocytes # 0.0 Blast Cells # 0.0 WBC Morphology Not Reportable Hypersegmented Neuts Not Reportable Hyposegmented Neuts Not Reportable Hypogranular Neuts Not Reportable Smudge Cells Not Reportable Toxic Granulation Not Reportable Toxic Vacuolation Not Reportable Dohle Bodies Not Reportable Pelger-Huet Anomaly Not Reportable Bharti Rods Not Reportable Platelet Estimate Consistent w auto Clumped Platelets Not Reportable Plt Clumps, EDTA Not Reportable Large Platelets Not Reportable Giant Platelets Not Reportable Platelet Satelliting Not Reportable Plt Morphology Comment Not Reportable RBC Morphology Not Reportable Dimorphic RBCs Not Reportable Polychromasia Few Hypochromasia 3+ Poikilocytosis 1+ Anisocytosis 2+ Microcytosis 3+ Macrocytosis Not Reportable Spherocytes Not Reportable Pappenheimer Bodies Not Reportable Sickle Cells Not Reportable Target Cells Few Tear Drop Cells Few Ovalocytes Not Reportable Helmet Cells Not Reportable [place] Bodies Not Reportable [place] Rings Not Reportable [place] Cells Not Reportable Bite Cells Not Reportable Crenated Cell Not Reportable Elliptocytes 1+ Acanthocytes (Spur) Not Reportable Rouleaux Not Reportable Hemoglobin C Crystals Not Reportable Schistocytes Few Malaria parasites Not Reportable Lui Bodies Not Reportable Hem Pathologist Commnt No PT 15.0 H INR 1.12 APTT 22.1 L Sodium Potassium Chloride Carbon Dioxide Anion Gap BUN Creatinine Estimated GFR BUN/Creatinine Ratio Glucose POC Glucose Hemoglobin A1c Calcium Total Bilirubin AST ALT Alkaline Phosphatase Total Protein Albumin Albumin/Globulin Ratio Blood Type A POSITIVE Antibody Screen Negative Crossmatch See Detail 07/26/18 07/26/18 07/27/18 17:34 23:00 00:02 WBC RBC Hgb Hct MCV MCH MCHC RDW Plt Count Lymph % (Auto) Schley % (Auto) Eos % (Auto) Baso % (Auto) Lymph # Schley # Eos # Baso # Add Manual Diff Total Counted Seg Neutrophils % Seg Neuts % (Manual) Band Neutrophils % Lymphocytes % (Manual) Reactive Lymphs % (Man) Monocytes % (Manual) Eosinophils % (Manual) Basophils % (Manual) Metamyelocytes % Myelocytes % Promyelocytes % Blast Cells % Nucleated RBC % Seg Neutrophils # Seg Neutrophils # Man Band Neutrophils # Lymphocytes # (Manual) Abs React Lymphs (Man) Monocytes # (Manual) Eosinophils # (Manual) Basophils # (Manual) Metamyelocytes # Myelocytes # Promyelocytes # Blast Cells # WBC Morphology Hypersegmented Neuts Hyposegmented Neuts Hypogranular Neuts Smudge Cells Toxic Granulation Toxic Vacuolation Dohle Bodies Pelger-Huet Anomaly Bharti Rods Platelet Estimate Clumped Platelets Plt Clumps, EDTA Large Platelets Giant Platelets Platelet Satelliting Plt Morphology Comment RBC Morphology Dimorphic RBCs Polychromasia Hypochromasia Poikilocytosis Anisocytosis Microcytosis Macrocytosis Spherocytes Pappenheimer Bodies Sickle Cells Target Cells Tear Drop Cells Ovalocytes Helmet Cells [place] Bodies [place] Rings Phoebe Cells Bite Cells Crenated Cell Elliptocytes Acanthocytes (Spur) Rouleaux Hemoglobin C Crystals Schistocytes Malaria parasites Lui Bodies Hem Pathologist Commnt PT INR APTT Sodium 138 Potassium 4.5 Chloride 103.2 Carbon Dioxide 22 Anion Gap 17 BUN 53 H Creatinine 1.8 H Estimated GFR 33 BUN/Creatinine Ratio 29 Glucose 123 H POC Glucose 126 H Hemoglobin A1c 5.4 Calcium 10.0 Total Bilirubin 0.60 AST 23 ALT 26 Alkaline Phosphatase 90 Total Protein 7.5 Albumin 3.6 L Albumin/Globulin Ratio 0.9 Blood Type Antibody Screen Crossmatch 07/27/18 07/27/18 07/27/18 04:48 04:48 05:43 WBC 12.0 H RBC 3.69 Hgb 8.3 L Hct 26.2 L D MCV 71 L MCH 23 L MCHC 32 RDW 25.2 H Plt Count 266 Lymph % (Auto) Schley % (Auto) Eos % (Auto) Baso % (Auto) Lymph # Schley # Eos # Baso # Add Manual Diff Complete Total Counted 100 Seg Neutrophils % Seg Neuts % (Manual) 92.0 H Band Neutrophils % 0 Lymphocytes % (Manual) 4.0 L Reactive Lymphs % (Man) 0 Monocytes % (Manual) 3.0 Eosinophils % (Manual) 0 Basophils % (Manual) 1.0 Metamyelocytes % 0 Myelocytes % 0 Promyelocytes % 0 Blast Cells % 0 Nucleated RBC % 1.0 H Seg Neutrophils # Seg Neutrophils # Man 11.0 H Band Neutrophils # 0.0 Lymphocytes # (Manual) 0.5 L Abs React Lymphs (Man) 0.0 Monocytes # (Manual) 0.4 Eosinophils # (Manual) 0.0 Basophils # (Manual) 0.1 Metamyelocytes # 0.0 Myelocytes # 0.0 Promyelocytes # 0.0 Blast Cells # 0.0 WBC Morphology Not Reportable Hypersegmented Neuts Not Reportable Hyposegmented Neuts Not Reportable Hypogranular Neuts Not Reportable Smudge Cells Not Reportable Toxic Granulation Not Reportable Toxic Vacuolation Not Reportable Dohle Bodies Not Reportable Pelger-Huet Anomaly Not Reportable Bharti Rods Not Reportable Platelet Estimate Consistent w auto Clumped Platelets Not Reportable Plt Clumps, EDTA Not Reportable Large Platelets Not Reportable Giant Platelets Not Reportable Platelet Satelliting Not Reportable Plt Morphology Comment Not Reportable RBC Morphology Not Reportable Dimorphic RBCs Not Reportable Polychromasia Not Reportable Hypochromasia 1+ Poikilocytosis 1+ Anisocytosis 1+ Microcytosis Not Reportable Macrocytosis Not Reportable Spherocytes Not Reportable Pappenheimer Bodies Not Reportable Sickle Cells Not Reportable Target Cells Not Reportable Tear Drop Cells Rare Ovalocytes Rare Helmet Cells Not Reportable [place] Bodies Not Reportable [place] Rings Not Reportable [place]be Cells Not Reportable Bite Cells Not Reportable Crenated Cell Not Reportable Elliptocytes Not Reportable Acanthocytes (Spur) Rare Rouleaux Not Reportable Hemoglobin C Crystals Not Reportable Schistocytes Not Reportable Malaria parasites Not Reportable Lui Bodies Not Reportable Hem Pathologist Commnt No PT INR APTT Sodium 143 Potassium 4.8 Chloride 107.8 H Carbon Dioxide 20 L Anion Gap 20 BUN 51 H Creatinine 1.5 H Estimated GFR 40 BUN/Creatinine Ratio 34 Glucose 120 H POC Glucose 125 H Hemoglobin A1c Calcium 9.8 Total Bilirubin 1.70 H AST 41 H ALT 25 Alkaline Phosphatase 90 Total Protein 7.6 Albumin 3.5 L Albumin/Globulin Ratio 0.9 Blood Type Antibody Screen Crossmatch Assessment and Plan 1.iron deficiency anemia -stool occult positive -H/H on admission 5.4/18.7 now 8.3/26.2 s/p transfusion 2 units PRBCs -continue to monitor H/H and transfuse as needed -daughter reports previous rectal bleeding at home after last hospitalization from external hemorrhoid (resolved s/p tx w/ suppositories) but no recent signs of bleeding- no active signs of bleeding per nursing since admission (stool brown in diaper upon exam) -Plavix and ASA on hold -EGD 05/28/18 - small proximal esophageal diverticulum, distal esophageal ring- like stricture through which scope passed readily (located at z-line @ 36cm), 4 cm hiatal hernia, normal stomach, and normal duodenum and bulb -colonoscopy 05/30/18- 8mm sessile TC polyp, and large external hemorrhoid, otherwise normal colonoscopy w/o stigmata of bleeding -etiology unclear- possibly 2/2 hemorrhoid vs small bowel source vs other -recommend hematology consult (patient may need IV iron) -bleeding scan if active bleeding develops -continue PPI and supportive care -further recommendations to follow 2.difficulty swallowing -etiology- likely 2/2 mental status change (dementia) vs other -recommend MARKETING RESEARCH INTERN evlebron <MICKIE PARADA - Last Filed: 07/27/18 13:13> Medications and Allergies Active Meds: Active Medications Acetaminophen (Tylenol) 650 mg PO Q4H PRN PRN Reason: Pain MILD(1-3)/Fever >100.5/SCANLON Albuterol (Proventil) 2.5 mg IH Q4HRT PRN PRN Reason: Shortness Of Breath Clonidine HCl (Catapres-Tts Patch) 0.2 mg TD Fr ADIA Last Admin: 07/27/18 11:35 Dose: 0.2 mg Hydromorphone HCl (Dilaudid) 0.5 mg IV Q3H PRN PRN Reason: Pain , Severe (7-10) Last Admin: 07/27/18 00:58 Dose: 0.5 mg Sodium Chloride (Nacl 0.9% 1000 Ml) 1,000 mls @ 75 mls/hr IV DIRECT AIDA Last Admin: 07/27/18 05:54 Dose: 75 mls/hr Insulin Human Lispro (Humalog) 0 unit SUB-Q Q6HR AIDA; Protocol Last Admin: 07/27/18 05:54 Dose: Not Given Morphine Sulfate (Morphine) 2 mg IV Q4H PRN PRN Reason: Pain, Moderate (4-6) Ondansetron HCl (Zofran) 4 mg IV Q8H PRN PRN Reason: Nausea And Vomiting Last Admin: 07/27/18 00:58 Dose: 4 mg Pantoprazole Sodium (Protonix) 40 mg IV BID AIDA Sodium Chloride (Sodium Chloride Flush Syringe 10 Ml) 10 ml IV BID AIDA Last Admin: 07/27/18 10:27 Dose: 10 ml Sodium Chloride (Sodium Chloride Flush Syringe 10 Ml) 10 ml IV PRN PRN PRN Reason: LINE FLUSH Zolpidem Tartrate (Ambien) 5 mg PO QHS PRN PRN Reason: Insomnia Exam - Constitutional Vital Signs: Temp Pulse Resp BP Pulse Ox 98.0 F 80 20 155/50 96 07/27/18 07:35 07/27/18 11:35 07/27/18 07:35 07/27/18 11:35 07/27/18 11:22 - Labs CBC & Chem 7: 07/27/18 04:48 07/27/18 04:48 Lab Results: Laboratory Results - last 24 hr 07/26/18 07/26/18 07/26/18 17:32 17:34 17:34 WBC 12.9 H RBC 2.88 L Hgb 5.4 L* Hct 18.7 L* MCV 65 L MCH 19 L MCHC 29 L RDW 25.1 H Plt Count 321 Lymph % (Auto) Electricity Trader Schley % (Auto) Electricity Trader Eos % (Auto) Electricity Trader Baso % (Auto) Electricity Trader Lymph # Electricity Trader Schley # Electricity Trader Eos # Electricity Trader Baso # Electricity Trader Add Manual Diff Complete Total Counted 100 Seg Neutrophils % Electricity Trader Seg Neuts % (Manual) 80.0 H Band Neutrophils % 1.0 Lymphocytes % (Manual) 13.0 L Reactive Lymphs % (Man) 0 Monocytes % (Manual) 4.0 Eosinophils % (Manual) 2.0 Basophils % (Manual) 0 Metamyelocytes % 0 Myelocytes % 0 Promyelocytes % 0 Blast Cells % 0 Nucleated RBC % 1.0 H Seg Neutrophils # Electricity Trader Seg Neutrophils # Man 10.3 H Band Neutrophils # 0.1 Lymphocytes # (Manual) 1.7 Abs React Lymphs (Man) 0.0 Monocytes # (Manual) 0.5 Eosinophils # (Manual) 0.3 Basophils # (Manual) 0.0 Metamyelocytes # 0.0 Myelocytes # 0.0 Promyelocytes # 0.0 Blast Cells # 0.0 WBC Morphology Not Reportable Hypersegmented Neuts Not Reportable Hyposegmented Neuts Not Reportable Hypogranular Neuts Not Reportable Smudge Cells Not Reportable Toxic Granulation Not Reportable Toxic Vacuolation Not Reportable Dohle Bodies Not Reportable Pelger-Huet Anomaly Not Reportable Bharti Rods Not Reportable Platelet Estimate Consistent w auto Clumped Platelets Not Reportable Plt Clumps, EDTA Not Reportable Large Platelets Not Reportable Giant Platelets Not Reportable Platelet Satelliting Not Reportable Plt Morphology Comment Not Reportable RBC Morphology Not Reportable Dimorphic RBCs Not Reportable Polychromasia Few Hypochromasia 3+ Poikilocytosis 1+ Anisocytosis 2+ Microcytosis 3+ Macrocytosis Not Reportable Spherocytes Not Reportable Pappenheimer Bodies Not Reportable Sickle Cells Not Reportable Target Cells Few Tear Drop Cells Few Ovalocytes Not Reportable Helmet Cells Not Reportable [place] Bodies Not Reportable [place] Rings Not Reportable [place] Cells Not Reportable Bite Cells Not Reportable Crenated Cell Not Reportable Elliptocytes 1+ Acanthocytes (Spur) Not Reportable Rouleaux Not Reportable Hemoglobin C Crystals Not Reportable Schistocytes Few Malaria parasites Not Reportable Lui Bodies Not Reportable Hem Pathologist Commnt No PT 15.0 H INR 1.12 APTT 22.1 L Sodium Potassium Chloride Carbon Dioxide Anion Gap BUN Creatinine Estimated GFR BUN/Creatinine Ratio Glucose POC Glucose Hemoglobin A1c Calcium Total Bilirubin AST ALT Alkaline Phosphatase Total Protein Albumin Albumin/Globulin Ratio Blood Type A POSITIVE Antibody Screen Negative Crossmatch See Detail 07/26/18 07/26/18 07/27/18 17:34 23:00 00:02 WBC RBC Hgb Hct MCV MCH MCHC RDW Plt Count Lymph % (Auto) Schley % (Auto) Eos % (Auto) Baso % (Auto) Lymph # Schley # Eos # Baso # Add Manual Diff Total Counted Seg Neutrophils % Seg Neuts % (Manual) Band Neutrophils % Lymphocytes % (Manual) Reactive Lymphs % (Man) Monocytes % (Manual) Eosinophils % (Manual) Basophils % (Manual) Metamyelocytes % Myelocytes % Promyelocytes % Blast Cells % Nucleated RBC % Seg Neutrophils # Seg Neutrophils # Man Band Neutrophils # Lymphocytes # (Manual) Abs React Lymphs (Man) Monocytes # (Manual) Eosinophils # (Manual) Basophils # (Manual) Metamyelocytes # Myelocytes # Promyelocytes # Blast Cells # WBC Morphology Hypersegmented Neuts Hyposegmented Neuts Hypogranular Neuts Smudge Cells Toxic Granulation Toxic Vacuolation Dohle Bodies Pelger-Huet Anomaly Bharti Rods Platelet Estimate Clumped Platelets Plt Clumps, EDTA Large Platelets Giant Platelets Platelet Satelliting Plt Morphology Comment RBC Morphology Dimorphic RBCs Polychromasia Hypochromasia Poikilocytosis Anisocytosis Microcytosis Macrocytosis Spherocytes Pappenheimer Bodies Sickle Cells Target Cells Tear Drop Cells Ovalocytes Helmet Cells [place] Bodies [place] Rings [place] Cells Bite Cells Crenated Cell Elliptocytes Acanthocytes (Spur) Rouleaux Hemoglobin C Crystals Schistocytes Malaria parasites Lui Bodies Hem Pathologist Commnt PT INR APTT Sodium 138 Potassium 4.5 Chloride 103.2 Carbon Dioxide 22 Anion Gap 17 BUN 53 H Creatinine 1.8 H Estimated GFR 33 BUN/Creatinine Ratio 29 Glucose 123 H POC Glucose 126 H Hemoglobin A1c 5.4 Calcium 10.0 Total Bilirubin 0.60 AST 23 ALT 26 Alkaline Phosphatase 90 Total Protein 7.5 Albumin 3.6 L Albumin/Globulin Ratio 0.9 Blood Type Antibody Screen Crossmatch 07/27/18 07/27/18 07/27/18 04:48 04:48 05:43 WBC 12.0 H RBC 3.69 Hgb 8.3 L Hct 26.2 L D MCV 71 L MCH 23 L MCHC 32 RDW 25.2 H Plt Count 266 Lymph % (Auto) Schley % (Auto) Eos % (Auto) Baso % (Auto) Lymph # Schley # Eos # Baso # Add Manual Diff Complete Total Counted 100 Seg Neutrophils % Seg Neuts % (Manual) 92.0 H Band Neutrophils % 0 Lymphocytes % (Manual) 4.0 L Reactive Lymphs % (Man) 0 Monocytes % (Manual) 3.0 Eosinophils % (Manual) 0 Basophils % (Manual) 1.0 Metamyelocytes % 0 Myelocytes % 0 Promyelocytes % 0 Blast Cells % 0 Nucleated RBC % 1.0 H Seg Neutrophils # Seg Neutrophils # Man 11.0 H Band Neutrophils # 0.0 Lymphocytes # (Manual) 0.5 L Abs React Lymphs (Man) 0.0 Monocytes # (Manual) 0.4 Eosinophils # (Manual) 0.0 Basophils # (Manual) 0.1 Metamyelocytes # 0.0 Myelocytes # 0.0 Promyelocytes # 0.0 Blast Cells # 0.0 WBC Morphology Not Reportable Hypersegmented Neuts Not Reportable Hyposegmented Neuts Not Reportable Hypogranular Neuts Not Reportable Smudge Cells Not Reportable Toxic Granulation Not Reportable Toxic Vacuolation Not Reportable Dohle Bodies Not Reportable Pelger-Huet Anomaly Not Reportable Bharti Rods Not Reportable Platelet Estimate Consistent w auto Clumped Platelets Not Reportable Plt Clumps, EDTA Not Reportable Large Platelets Not Reportable Giant Platelets Not Reportable Platelet Satelliting Not Reportable Plt Morphology Comment Not Reportable RBC Morphology Not Reportable Dimorphic RBCs Not Reportable Polychromasia Not Reportable Hypochromasia 1+ Poikilocytosis 1+ Anisocytosis 1+ Microcytosis Not Reportable Macrocytosis Not Reportable Spherocytes Not Reportable Pappenheimer Bodies Not Reportable Sickle Cells Not Reportable Target Cells Not Reportable Tear Drop Cells Rare Ovalocytes Rare Helmet Cells Not Reportable [place] Bodies Not Reportable [place] Rings Not Reportable [place] Cells Not Reportable Bite Cells Not Reportable Crenated Cell Not Reportable Elliptocytes Not Reportable Acanthocytes (Spur) Rare Rouleaux Not Reportable Hemoglobin C Crystals Not Reportable Schistocytes Not Reportable Malaria parasites Not Reportable Lui Bodies Not Reportable Hem Pathologist Commnt No PT INR APTT Sodium 143 Potassium 4.8 Chloride 107.8 H Carbon Dioxide 20 L Anion Gap 20 BUN 51 H Creatinine 1.5 H Estimated GFR 40 BUN/Creatinine Ratio 34 Glucose 120 H POC Glucose 125 H Hemoglobin A1c Calcium 9.8 Total Bilirubin 1.70 H AST 41 H ALT 25 Alkaline Phosphatase 90 Total Protein 7.6 Albumin 3.5 L Albumin/Globulin Ratio 0.9 Blood Type Antibody Screen Crossmatch 07/27/18 11:48 WBC RBC Hgb Hct MCV MCH MCHC RDW Plt Count Lymph % (Auto) Schley % (Auto) Eos % (Auto) Baso % (Auto) Lymph # Schley # Eos # Baso # Add Manual Diff Total Counted Seg Neutrophils % Seg Neuts % (Manual) Band Neutrophils % Lymphocytes % (Manual) Reactive Lymphs % (Man) Monocytes % (Manual) Eosinophils % (Manual) Basophils % (Manual) Metamyelocytes % Myelocytes % Promyelocytes % Blast Cells % Nucleated RBC % Seg Neutrophils # Seg Neutrophils # Man Band Neutrophils # Lymphocytes # (Manual) Abs React Lymphs (Man) Monocytes # (Manual) Eosinophils # (Manual) Basophils # (Manual) Metamyelocytes # Myelocytes # Promyelocytes # Blast Cells # WBC Morphology Hypersegmented Neuts Hyposegmented Neuts Hypogranular Neuts Smudge Cells Toxic Granulation Toxic Vacuolation Dohle Bodies Pelger-Huet Anomaly Bharti Rods Platelet Estimate Clumped Platelets Plt Clumps, EDTA Large Platelets Giant Platelets Platelet Satelliting Plt Morphology Comment RBC Morphology Dimorphic RBCs Polychromasia Hypochromasia Poikilocytosis Anisocytosis Microcytosis Macrocytosis Spherocytes Pappenheimer Bodies Sickle Cells Target Cells Tear Drop Cells Ovalocytes Helmet Cells [place] Bodies [place] Rings Pho[place]be Cells Bite Cells Crenated Cell Elliptocytes Acanthocytes (Spur) Rouleaux Hemoglobin C Crystals Schistocytes Malaria parasites Lui Bodies Hem Pathologist Commnt PT INR APTT Sodium Potassium Chloride Carbon Dioxide Anion Gap BUN Creatinine Estimated GFR BUN/Creatinine Ratio Glucose POC Glucose 118 H Hemoglobin A1c Calcium Total Bilirubin AST ALT Alkaline Phosphatase Total Protein Albumin Albumin/Globulin Ratio Blood Type Antibody Screen Crossmatch Assessment and Plan Pt seen and examined. agree with note above. pt unable to provide history but no signs of overt gi bleeding. h/o GARRETT with no obvious source on recent egd/ colonoscopy. may have small bowel lesion/source with occult bleeding in setting of dual anti-platelet therapy. she should be on iron replacement therapy (likely IV iron, recommend hematology eval). will follow, consider small bowel imaging while inpt if labs don't improve (outpt pill cam may not be possible given mental status).
[2018-07-27] MEDS: PROTONIX IV SCH ×2 (13:39→23:37)
--- NOTE | 2018-07-27 14:16 | Ultrasound Report ---
ULTRASOUND ABDOMEN COMPLETE: TECHNIQUE: Transabdominal ultrasound with color Doppler interrogation. HISTORY: Biliary obstruction, abdominal pain. COMPARISON: CT abdomen pelvis without contrast performed 05/27/18. FINDINGS: LIVER: Within normal limits. BILIARY SYSTEM: Pneumobilia is again suspected. The gallbladder is not confidently identified suggesting cholecystectomy or a contracted gallbladder. Please correlate with history. There is mild prominence of the common bile duct measuring 7.1 mm in diameter. PANCREAS: Obscured by bowel gas. SPLEEN: Within normal limits. 8 cm in length. KIDNEYS: Both kidneys are borderline atrophic with increased echotexture suggesting mild chronic renal parenchymal disease. No focal renal lesion or hydronephrosis. AORTA/IVC: Normal. ASCITES: None. IMPRESSION: Pneumobilia. The CBD measures 7.1 mm. The gallbladder is not confidently identified, correlate with surgical history. Mild chronic renal parenchymal disease.
--- NOTE | 2018-07-27 16:17 | Progress Note ---
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 Patient was discharged on 05/30/18. She came back on 07/15/18 to the ED for Rectal pain from hemorrhoids 05/30/18 Colonoscopy Transverse Colon 8 mm sessile polyp s/p hot snare polypectomy , large external hemorrhoid, 05/28/18 EGD findings of small proximal esophageal diverticulum, distal esophageal ring like stricture through which scope passed readily, located at Z- line 36cm, 4 cm hiatal hernia, normal stomach, duoduneum and bulb. * Ultrasound Abdomen: Pneumobilia, the CBD measures 7.1mm. The gallbladder is not confidently identified, correlate with surgical history, mild chronic renal parenchymal disease. * +FOBT in ED Acute on chronic blood loss anemia with symptoms Transfuse 2 units of PRBC Need outpatient pill camera IV Protonix started Microcytic anemia most likely iron deficiency anemia d/w Dr. Phil Luis, GI, start Iron infusion Acute kidney injury IV fluids for now Vasomotor nephropathy repeat bmp am Hypertension continue home medication Hypothyroidism re-start synthroid COPD (chronic obstructive pulmonary disease) Continue duo nebs DVT prophylaxis SCDs GI prophylaxis PPI full code Disposition: continue inpatient care, consult Case management and PT for possible placement UA, tsh ordered I called daughter Maryanne Cordero @ [phone] for update, no answer @ 1426 History Interval history: Patient was seen and examined. Follow-up on current diagnosis of malaise. Overnight uneventful. Patient is confused Imaging, nursing note, chart, labs and old chart reviewed. Discussed with patient. Hospitalist Physical - Physical exam Narrative exam: GEN: WDWN, NAD, Awake, Alert, confused, bmi 45.7 HEENT: NCAT, EOMI, PERRL, OP Clear NECK: supple, no adenopathy, no thyromegaly, no JVD CVS/HEART: RRR, normal S1S2, pulses present bilaterally CHEST/LUNGS: CTA B, Symmetrical chest expansion, good air entry bilaterally GI/Abdomen: soft, NTND, good bowel sounds, no guarding or rebound /Bladder: no suprapubic tenderness, no CVA or paraspinal tenderness EXT/Skin: no c/c/e, no obvious rash MSK: bilateral stump intact Neuro: CN 2-12 grossly intact, no new focal deficits Psych: calm - Constitutional Vitals: Temp Pulse Resp BP Pulse Ox 98.2 F 62 20 129/33 75 L 07/27/18 13:15 07/27/18 13:15 07/27/18 13:15 07/27/18 13:15 07/27/18 13:15 General appearance: Present: no acute distress, well-nourished Results - Labs CBC & Chem 7: 07/27/18 04:48 07/27/18 04:48 Labs: Laboratory Last Values WBC 12.0 K/mm3 (4.5-11.0) H 07/27/18 04:48 RBC 3.69 M/mm3 (3.65-5.03) 07/27/18 04:48 Hgb 8.3 gm/dl (10.1-14.3) L 07/27/18 04:48 Hct 26.2 % (30.3-42.9) L D 07/27/18 04:48 MCV 71 fl (79-97) L 07/27/18 04:48 MCH 23 pg (28-32) L 07/27/18 04:48 MCHC 32 % (30-34) 07/27/18 04:48 RDW 25.2 % (13.2-15.2) H 07/27/18 04:48 Plt Count 266 K/mm3 (140-440) 07/27/18 04:48 Lymph % (Auto) [employer] 07/26/18 17:34 [place] % (Auto) [employer] 07/26/18 17:34 Eos % (Auto) [employer] 07/26/18 17:34 Baso % (Auto) [employer] 07/26/18 17:34 Lymph # [employer] 07/26/18 17:34 [place] # [employer] 07/26/18 17:34 Eos # [employer] 07/26/18 17:34 Baso # [employer] 07/26/18 17:34 Add Manual Diff Complete 07/27/18 04:48 Total Counted 100 07/27/18 04:48 Seg Neutrophils % [employer] 07/26/18 17:34 Seg Neuts % (Manual) 92.0 % (40.0-70.0) H 07/27/18 04:48 Band Neutrophils % 0 % 07/27/18 04:48 Lymphocytes % (Manual) 4.0 % (13.4-35.0) L 07/27/18 04:48 Reactive Lymphs % (Man) 0 % 07/27/18 04:48 Monocytes % (Manual) 3.0 % (0.0-7.3) 07/27/18 04:48 Eosinophils % (Manual) 0 % (0.0-4.3) 07/27/18 04:48 Basophils % (Manual) 1.0 % (0.0-1.8) 07/27/18 04:48 Metamyelocytes % 0 % 07/27/18 04:48 Myelocytes % 0 % 07/27/18 04:48 Promyelocytes % 0 % 07/27/18 04:48 Blast Cells % 0 % 07/27/18 04:48 Nucleated RBC % 1.0 % (0.0-0.9) H 07/27/18 04:48 Seg Neutrophils # [employer] 07/26/18 17:34 Seg Neutrophils # Man 11.0 K/mm3 (1.8-7.7) H 07/27/18 04:48 Band Neutrophils # 0.0 K/mm3 07/27/18 04:48 Lymphocytes # (Manual) 0.5 K/mm3 (1.2-5.4) L 07/27/18 04:48 Abs React Lymphs (Man) 0.0 K/mm3 07/27/18 04:48 Monocytes # (Manual) 0.4 K/mm3 (0.0-0.8) 07/27/18 04:48 Eosinophils # (Manual) 0.0 K/mm3 (0.0-0.4) 07/27/18 04:48 Basophils # (Manual) 0.1 K/mm3 (0.0-0.1) 07/27/18 04:48 Metamyelocytes # 0.0 K/mm3 07/27/18 04:48 Myelocytes # 0.0 K/mm3 07/27/18 04:48 Promyelocytes # 0.0 K/mm3 07/27/18 04:48 Blast Cells # 0.0 K/mm3 07/27/18 04:48 WBC Morphology Not Reportable 07/27/18 04:48 Hypersegmented Neuts Not Reportable 07/27/18 04:48 Hyposegmented Neuts Not Reportable 07/27/18 04:48 Hypogranular Neuts Not Reportable 07/27/18 04:48 Smudge Cells Not Reportable 07/27/18 04:48 Toxic Granulation Not Reportable 07/27/18 04:48 Toxic Vacuolation Not Reportable 07/27/18 04:48 Dohle Bodies Not Reportable 07/27/18 04:48 Pelger-Huet Anomaly Not Reportable 07/27/18 04:48 Bharti Rods Not Reportable 07/27/18 04:48 Platelet Estimate Consistent w auto 07/27/18 04:48 Clumped Platelets Not Reportable 07/27/18 04:48 Plt Clumps, EDTA Not Reportable 07/27/18 04:48 Large Platelets Not Reportable 07/27/18 04:48 Giant Platelets Not Reportable 07/27/18 04:48 Platelet Satelliting Not Reportable 07/27/18 04:48 Plt Morphology Comment Not Reportable 07/27/18 04:48 RBC Morphology Not Reportable 07/27/18 04:48 Dimorphic RBCs Not Reportable 07/27/18 04:48 Polychromasia Not Reportable 07/27/18 04:48 Hypochromasia 1+ 07/27/18 04:48 Poikilocytosis 1+ 07/27/18 04:48 Anisocytosis 1+ 07/27/18 04:48 Microcytosis Not Reportable 07/27/18 04:48 Macrocytosis Not Reportable 07/27/18 04:48 Spherocytes Not Reportable 07/27/18 04:48 Pappenheimer Bodies Not Reportable 07/27/18 04:48 Sickle Cells Not Reportable 07/27/18 04:48 Target Cells Not Reportable 07/27/18 04:48 Tear Drop Cells Rare 07/27/18 04:48 Ovalocytes Rare 07/27/18 04:48 Helmet Cells Not Reportable 07/27/18 04:48 Vidal-[place] Bodies Not Reportable 07/27/18 04:48 [place] Rings Not Reportable 07/27/18 04:48 Phoebe Cells Not Reportable 07/27/18 04:48 Bite Cells Not Reportable 07/27/18 04:48 Crenated Cell Not Reportable 07/27/18 04:48 Elliptocytes Not Reportable 07/27/18 04:48 Acanthocytes (Spur) Rare 07/27/18 04:48 Rouleaux Not Reportable 07/27/18 04:48 Hemoglobin C Crystals Not Reportable 07/27/18 04:48 Schistocytes Not Reportable 07/27/18 04:48 Malaria parasites Not Reportable 07/27/18 04:48 Lui Bodies Not Reportable 07/27/18 04:48 Hem Pathologist Commnt No 07/27/18 04:48 PT 15.0 Sec. (12.2-14.9) H 07/26/18 17:34 INR 1.12 (0.87-1.13) 07/26/18 17:34 APTT 22.1 Sec. (24.2-36.6) L 07/26/18 17:34 Sodium 143 mmol/L (137-145) 07/27/18 04:48 Potassium 4.8 mmol/L (3.6-5.0) 07/27/18 04:48 Chloride 107.8 mmol/L (98-107) H 07/27/18 04:48 Carbon Dioxide 20 mmol/L (22-30) L 07/27/18 04:48 Anion Gap 20 mmol/L 07/27/18 04:48 BUN 51 mg/dL (7-17) H 07/27/18 04:48 Creatinine 1.5 mg/dL (0.7-1.2) H 07/27/18 04:48 Estimated GFR 40 ml/min 07/27/18 04:48 BUN/Creatinine Ratio 34 % 07/27/18 04:48 Glucose 120 mg/dL (65-100) H 07/27/18 04:48 POC Glucose 118 (70-105) H 07/27/18 11:48 Hemoglobin A1c 5.4 % (4-6) 07/26/18 23:00 Calcium 9.8 mg/dL (8.4-10.2) 07/27/18 04:48 Total Bilirubin 1.70 mg/dL (0.1-1.2) H 07/27/18 04:48 AST 41 units/L (5-40) H 07/27/18 04:48 ALT 25 units/L (7-56) 07/27/18 04:48 Alkaline Phosphatase 90 units/L (35-129) 07/27/18 04:48 Total Protein 7.6 g/dL (6.3-8.2) 07/27/18 04:48 Albumin 3.5 g/dL (3.9-5) L 07/27/18 04:48 Albumin/Globulin Ratio 0.9 % 07/27/18 04:48 Blood Type A POSITIVE 07/26/18 17:32 Antibody Screen Negative 07/26/18 17:32 Crossmatch See Detail 07/26/18 17:32
[2018-07-27] MEDS ORDERED: NORCO 10/325 PO PRN (16:33)
[2018-07-27] MEDS ORDERED: FERRLECIT 125 MG in NACL 0.9% 100 ML IV ONE (18:00)
[2018-07-27] MEDS: REMERON PO SCH (23:49)
[2018-07-28 05:11] LABS: Hemoglobin 8.4 gm/dl (10.1-14.3); Mean Corpuscular HGB Conc 31 % (30-34); Mean Corpuscular Volume 71 fl (79-97); Red Blood Count 3.79 M/mm3 (3.65-5.03)
[2018-07-28 05:12] LABS: Mean Corpuscular Hemoglobin 22 pg (28-32); Red Cell Distribution Width 25.3 % (13.2-15.2)
[2018-07-28 05:31] LABS: Calcium 9.9 mg/dL (8.4-10.2)
[2018-07-28 06:03] LABS: Platelet Count 225 K/mm3 (140-440)
[2018-07-28] MEDS: LOPRESSOR PO SCH (10:03)
[2018-07-28] MEDS: PROTONIX IV SCH ×2 (10:03→21:44)
[2018-07-28] MEDS: SYNTHROID PO SCH (10:03)
[2018-07-28] MEDS: SODIUM CHLORIDE FLUSH SYRINGE 10 ML IV PRN ×2 (10:03→21:44)
--- NOTE | 2018-07-28 12:36 | Progress Note ---
Assessment and Plan 1. Anemia - hemoglobin is stable. Extensive recent workup as noted. - Recommend iron supplementation by infusion. - If hemorrhoid persists in being problem, may need surgical management. - Prior to that, if possible, would do PillCam as outpatient to exclude other source of anemia. Subjective Date of service: 07/28/18 Interval history: Patient lying in bed. Denies specific complaints except feels bad. Objective - Constitutional Vitals: Vital Signs - 12hr 07/28/18 07/28/18 07/28/18 00:50 02:00 06:00 Temperature 98.6 F 98.6 F Pulse Rate 65 Respiratory 18 20 20 Rate Blood Pressure 111/27 148/37 Blood Pressure [Left] Blood Pressure [Right] O2 Sat by Pulse 100 Oximetry 07/28/18 07/28/18 08:03 10:03 Temperature 97.9 F Pulse Rate 81 Respiratory 22 Rate Blood Pressure 157/34 Blood Pressure 157/34 [Left] Blood Pressure 157/34 [Right] O2 Sat by Pulse 96 Oximetry General appearance: Present: no acute distress - EENT Eyes: PERRL, EOM intact ENT: hearing intact - Respiratory Respiratory effort: normal Extremity abnormal: other (Bilateral AKA) - Gastrointestinal General gastrointestinal: Present: soft, non-tender - Labs CBC & Chem 7: 07/28/18 03:44 07/28/18 03:44 Labs: Abnormal lab results 07/27/18 07/28/18 07/28/18 Range/Units 18:04 00:16 03:44 WBC 13.8 H (4.5-11.0) K/mm3 Hgb 8.4 L (10.1-14.3) gm/dl Hct 27.0 L (30.3-42.9) % MCV 71 L (79-97) fl MCH 22 L (28-32) pg RDW 25.3 H (13.2-15.2) % Chloride (98-107) mmol/L Carbon Dioxide (22-30) mmol/L BUN (7-17) mg/dL Creatinine (0.7-1.2) mg/dL Glucose (65-100) mg/dL POC Glucose 133 H 139 H (70-105) 07/28/18 07/28/18 Range/Units 03:44 07:52 WBC (4.5-11.0) K/mm3 Hgb (10.1-14.3) gm/dl Hct (30.3-42.9) % MCV (79-97) fl MCH (28-32) pg RDW (13.2-15.2) % Chloride 109.6 H (98-107) mmol/L Carbon Dioxide 20 L (22-30) mmol/L BUN 48 H (7-17) mg/dL Creatinine 1.4 H (0.7-1.2) mg/dL Glucose 106 H (65-100) mg/dL POC Glucose 124 H (70-105)
--- NOTE | 2018-07-28 15:26 | Progress Note ---
Assessment and Plan Assessment and plan: Patient is a 78 yo woman with a past medical history of hypertension, Advance Dementia, hypothyrodism, chronic metformin use for weight loss, chronic GI blood loss anemia, Right carotid endartectomy 04/2018, large external hemorrhoids s/p snare, CVA with right hemiparesis and bilateral BKA secondary to PVD who presented to [facility] ED with malaise and AMS. Patient was discharged on 05/30/18. She came back on 07/15/18 to the ED for Rectal pain from hemorrhoids 05/30/18 Colonoscopy Transverse Colon 8 mm sessile polyp s/p hot snare polypectomy , large external hemorrhoid, 05/28/18 EGD findings of small proximal esophageal diverticulum, distal esophageal ring like stricture through which scope passed readily, located at Z- line 36cm, 4 cm hiatal hernia, normal stomach, duoduneum and bulb. * Ultrasound Abdomen: Pneumobilia, the CBD measures 7.1mm. The gallbladder is not confidently identified, correlate with surgical history, mild chronic renal parenchymal disease. * +FOBT in ED Acute on chronic blood loss anemia with symptoms Transfuse 2 units of PRBC Need outpatient pill camera IV Protonix started Acute Encephalopathy, with Odynophagia and dehydration, renal failue consulted speech therapy Microcytic anemia most likely iron deficiency anemia d/w Dr. Phil Luis, GI, started Iron infusion on 07/27/18 x 5 days Hemorrhoids s/p repair GI following Acute kidney injury IV fluids for now Vasomotor nephropathy repeat bmp am Dementia with sundowning, the Remeron really helps, so it was restarted restraints as needed, she ignores personal safety fall precaution Hypertension continue home medication Hypothyroidism re-start synthroid COPD (chronic obstructive pulmonary disease) Continue duo nebs DVT prophylaxis SCDs GI prophylaxis PPI full code Disposition: continue inpatient care, consult Case management and PT for SNF placement, UA, uncollected, called and spoke with Suyapa ERNST tsh=>normal I called daughter aMryanne Cordero @ [phone] for update at 4031 and gave her update. She visited and wants [facility] in [place], [place]. They have a bed. History Interval history: Patient was seen and examined. Follow-up on current diagnosis of malaise. Overnight uneventful. Patient is confused. Imaging, nursing note, chart, labs and old chart reviewed.. Hospitalist Physical - Physical exam Narrative exam: GEN: WDWN, NAD, Awake, Alert, confused, bmi 45.7 HEENT: NCAT, EOMI, PERRL, OP Clear NECK: supple, no adenopathy, no thyromegaly, no JVD CVS/HEART: RRR, normal S1S2, pulses present bilaterally CHEST/LUNGS: CTA B, Symmetrical chest expansion, good air entry bilaterally GI/Abdomen: soft, NTND, good bowel sounds, no guarding or rebound /Bladder: no suprapubic tenderness, no CVA or paraspinal tenderness EXT/Skin: no c/c/e, no obvious rash MSK: bilateral leg amputee with stump c/d/i Neuro: CN 2-12 grossly intact, no new focal deficits Psych: calm - Constitutional Vitals: Temp Pulse Resp BP Pulse Ox 98.0 F 72 20 142/39 99 07/28/18 14:15 07/28/18 14:15 07/28/18 14:15 07/28/18 14:15 07/28/18 14:15 General appearance: Present: no acute distress Results - Labs CBC & Chem 7: 07/28/18 03:44 07/28/18 03:44 Labs: Laboratory Last Values WBC 13.8 K/mm3 (4.5-11.0) H 07/28/18 03:44 RBC 3.79 M/mm3 (3.65-5.03) 07/28/18 03:44 Hgb 8.4 gm/dl (10.1-14.3) L 07/28/18 03:44 Hct 27.0 % (30.3-42.9) L 07/28/18 03:44 MCV 71 fl (79-97) L 07/28/18 03:44 MCH 22 pg (28-32) L 07/28/18 03:44 MCHC 31 % (30-34) 07/28/18 03:44 RDW 25.3 % (13.2-15.2) H 07/28/18 03:44 Plt Count 225 K/mm3 (140-440) 07/28/18 03:44 Lymph % (Auto) [employer] 07/26/18 17:34 [place] % (Auto) [employer] 07/26/18 17:34 Eos % (Auto) [employer] 07/26/18 17:34 Baso % (Auto) [employer] 07/26/18 17:34 Lymph # [employer] 07/26/18 17:34 [place] # [employer] 07/26/18 17:34 Eos # [employer] 07/26/18 17:34 Baso # [employer] 07/26/18 17:34 Add Manual Diff Complete 07/27/18 04:48 Total Counted 100 07/27/18 04:48 Seg Neutrophils % [employer] 07/26/18 17:34 Seg Neuts % (Manual) 92.0 % (40.0-70.0) H 07/27/18 04:48 Band Neutrophils % 0 % 07/27/18 04:48 Lymphocytes % (Manual) 4.0 % (13.4-35.0) L 07/27/18 04:48 Reactive Lymphs % (Man) 0 % 07/27/18 04:48 Monocytes % (Manual) 3.0 % (0.0-7.3) 07/27/18 04:48 Eosinophils % (Manual) 0 % (0.0-4.3) 07/27/18 04:48 Basophils % (Manual) 1.0 % (0.0-1.8) 07/27/18 04:48 Metamyelocytes % 0 % 07/27/18 04:48 Myelocytes % 0 % 07/27/18 04:48 Promyelocytes % 0 % 07/27/18 04:48 Blast Cells % 0 % 07/27/18 04:48 Nucleated RBC % 1.0 % (0.0-0.9) H 07/27/18 04:48 Seg Neutrophils # [employer] 07/26/18 17:34 Seg Neutrophils # Man 11.0 K/mm3 (1.8-7.7) H 07/27/18 04:48 Band Neutrophils # 0.0 K/mm3 07/27/18 04:48 Lymphocytes # (Manual) 0.5 K/mm3 (1.2-5.4) L 07/27/18 04:48 Abs React Lymphs (Man) 0.0 K/mm3 07/27/18 04:48 Monocytes # (Manual) 0.4 K/mm3 (0.0-0.8) 07/27/18 04:48 Eosinophils # (Manual) 0.0 K/mm3 (0.0-0.4) 07/27/18 04:48 Basophils # (Manual) 0.1 K/mm3 (0.0-0.1) 07/27/18 04:48 Metamyelocytes # 0.0 K/mm3 07/27/18 04:48 Myelocytes # 0.0 K/mm3 07/27/18 04:48 Promyelocytes # 0.0 K/mm3 07/27/18 04:48 Blast Cells # 0.0 K/mm3 07/27/18 04:48 WBC Morphology Not Reportable 07/27/18 04:48 Hypersegmented Neuts Not Reportable 07/27/18 04:48 Hyposegmented Neuts Not Reportable 07/27/18 04:48 Hypogranular Neuts Not Reportable 07/27/18 04:48 Smudge Cells Not Reportable 07/27/18 04:48 Toxic Granulation Not Reportable 07/27/18 04:48 Toxic Vacuolation Not Reportable 07/27/18 04:48 Dohle Bodies Not Reportable 07/27/18 04:48 Pelger-Huet Anomaly Not Reportable 07/27/18 04:48 Bharti Rods Not Reportable 07/27/18 04:48 Platelet Estimate Consistent w auto 07/27/18 04:48 Clumped Platelets Not Reportable 07/27/18 04:48 Plt Clumps, EDTA Not Reportable 07/27/18 04:48 Large Platelets Not Reportable 07/27/18 04:48 Giant Platelets Not Reportable 07/27/18 04:48 Platelet Satelliting Not Reportable 07/27/18 04:48 Plt Morphology Comment Not Reportable 07/27/18 04:48 RBC Morphology Not Reportable 07/27/18 04:48 Dimorphic RBCs Not Reportable 07/27/18 04:48 Polychromasia Not Reportable 07/27/18 04:48 Hypochromasia 1+ 07/27/18 04:48 Poikilocytosis 1+ 07/27/18 04:48 Anisocytosis 1+ 07/27/18 04:48 Microcytosis Not Reportable 07/27/18 04:48 Macrocytosis Not Reportable 07/27/18 04:48 Spherocytes Not Reportable 07/27/18 04:48 Pappenheimer Bodies Not Reportable 07/27/18 04:48 Sickle Cells Not Reportable 07/27/18 04:48 Target Cells Not Reportable 07/27/18 04:48 Tear Drop Cells Rare 07/27/18 04:48 Ovalocytes Rare 07/27/18 04:48 Helmet Cells Not Reportable 07/27/18 04:48 Vidal-[place] Bodies Not Reportable 07/27/18 04:48 [place] Rings Not Reportable 07/27/18 04:48 Phoebe Cells Not Reportable 07/27/18 04:48 Bite Cells Not Reportable 07/27/18 04:48 Crenated Cell Not Reportable 07/27/18 04:48 Elliptocytes Not Reportable 07/27/18 04:48 Acanthocytes (Spur) Rare 07/27/18 04:48 Rouleaux Not Reportable 07/27/18 04:48 Hemoglobin C Crystals Not Reportable 07/27/18 04:48 Schistocytes Not Reportable 07/27/18 04:48 Malaria parasites Not Reportable 07/27/18 04:48 Lui Bodies Not Reportable 07/27/18 04:48 Hem Pathologist Commnt No 07/27/18 04:48 PT 15.0 Sec. (12.2-14.9) H 07/26/18 17:34 INR 1.12 (0.87-1.13) 07/26/18 17:34 APTT 22.1 Sec. (24.2-36.6) L 07/26/18 17:34 Sodium 143 mmol/L (137-145) 07/28/18 03:44 Potassium 4.6 mmol/L (3.6-5.0) 07/28/18 03:44 Chloride 109.6 mmol/L (98-107) H 07/28/18 03:44 Carbon Dioxide 20 mmol/L (22-30) L 07/28/18 03:44 Anion Gap 18 mmol/L 07/28/18 03:44 BUN 48 mg/dL (7-17) H 07/28/18 03:44 Creatinine 1.4 mg/dL (0.7-1.2) H 07/28/18 03:44 Estimated GFR 44 ml/min 07/28/18 03:44 BUN/Creatinine Ratio 34 % 07/28/18 03:44 Glucose 106 mg/dL (65-100) H 07/28/18 03:44 POC Glucose 124 (70-105) H 07/28/18 07:52 Hemoglobin A1c 5.4 % (4-6) 07/26/18 23:00 Calcium 9.9 mg/dL (8.4-10.2) 07/28/18 03:44 Total Bilirubin 1.70 mg/dL (0.1-1.2) H 07/27/18 04:48 AST 41 units/L (5-40) H 07/27/18 04:48 ALT 25 units/L (7-56) 07/27/18 04:48 Alkaline Phosphatase 90 units/L (35-129) 07/27/18 04:48 Total Protein 7.6 g/dL (6.3-8.2) 07/27/18 04:48 Albumin 3.5 g/dL (3.9-5) L 07/27/18 04:48 Albumin/Globulin Ratio 0.9 % 07/27/18 04:48 TSH 0.300 mlU/mL (0.270-4.200) 07/28/18 03:44 Blood Type A POSITIVE 07/26/18 17:32 Antibody Screen Negative 07/26/18 17:32 Crossmatch See Detail 07/26/18 17:32
[2018-07-28] MEDS: FERRLECIT 125 MG in NACL 0.9% 100 ML IV SCH (19:38)
[2018-07-28 20:56] LABS: Bilirubin,Urine NEG (Negative); Blood,Urine NEG (Negative); Color,Urine Yellow (Yellow); Mucus,Urine FEW /HPF; Protein,Urine <15 mg/dL mg/dL (Negative); Urobilinogen,Urine < 2.0 mg/dL (<2.0); WBC,Urine < 1.0 /HPF (0.0-6.0)
[2018-07-28] MEDS: REMERON PO SCH (21:44)
[2018-07-29] MEDS: SYNTHROID PO SCH (05:16)
[2018-07-29 06:21] LABS: Hematocrit 27.2 % (30.3-42.9); Hemoglobin 8.4 gm/dl (10.1-14.3); Mean Corpuscular HGB Conc 31 % (30-34); Mean Corpuscular Volume 72 fl (79-97); Platelet Count 201 K/mm3 (140-440); Red Blood Count 3.77 M/mm3 (3.65-5.03)
[2018-07-29 06:29] LABS: Mean Corpuscular Hemoglobin 22 pg (28-32); Red Cell Distribution Width 25.7 % (13.2-15.2)
[2018-07-29 06:43] LABS: Calcium 9.6 mg/dL (8.4-10.2)
[2018-07-29] MEDS: FERRLECIT 125 MG in NACL 0.9% 100 ML IV SCH (10:16)
[2018-07-29] MEDS: LOPRESSOR PO SCH (10:17)
[2018-07-29] MEDS: PROTONIX IV SCH (10:18)
--- NOTE | 2018-07-29 13:41 | Progress Note ---
Assessment and Plan Assessment and plan: Patient is a 78 yo woman with a past medical history of hypertension, Advance Dementia, hypothyrodism, chronic metformin use for weight loss, chronic GI blood loss anemia, Right carotid endartectomy 04/2018, large external hemorrhoids s/p snare, CVA with right hemiparesis and bilateral BKA secondary to PVD who presented to [facility] ED with malaise and AMS. Patient was discharged on 05/30/18. She came back on 07/15/18 to the ED for Rectal pain from hemorrhoids 05/30/18 Colonoscopy Transverse Colon 8 mm sessile polyp s/p hot snare polypectomy , large external hemorrhoid, 05/28/18 EGD findings of small proximal esophageal diverticulum, distal esophageal ring like stricture through which scope passed readily, located at Z- line 36cm, 4 cm hiatal hernia, normal stomach, duoduneum and bulb. * Ultrasound Abdomen: Pneumobilia, the CBD measures 7.1mm. The gallbladder is not confidently identified, correlate with surgical history, mild chronic renal parenchymal disease. * +FOBT in ED Acute on chronic blood loss anemia with symptoms Transfuse 2 units of PRBC Need outpatient pill camera IV Protonix started Acute Encephalopathy, with Odynophagia and dehydration, renal failue consulted speech therapy Microcytic anemia most likely iron deficiency anemia d/w Dr. Phil Luis, GI, started Iron infusion on 07/27/18 x 5 days Hemorrhoids s/p repair GI following Acute kidney injury IV fluids for now Vasomotor nephropathy repeat bmp am Dementia with sundowning, the Remeron really helps, so it was restarted restraints as needed, she ignores personal safety fall precaution Hypertension continue home medication Hypothyroidism re-start synthroid COPD (chronic obstructive pulmonary disease) Continue duo nebs DVT prophylaxis SCDs GI prophylaxis PPI full code Disposition: continue inpatient care, consult Case management and PT for SNF placement, UA, uncollected, called and spoke with Suyapa ERNST tsh=>normal I called daughter Maryanne Cordero @ [phone] for update at [phone] and gave her update. She visited and wants [facility] in [place], [place]. They have a bed. History Interval history: Patient was seen and examined. Follow-up on current diagnosis of malaise. Overnight uneventful. Patient is confused. Imaging, nursing note, chart, labs and old chart reviewed.. Hospitalist Physical - Physical exam Narrative exam: GEN: WDWN, NAD, Awake, Alert, confused, bmi 45.7 HEENT: NCAT, EOMI, PERRL, OP Clear NECK: supple, no adenopathy, no thyromegaly, no JVD CVS/HEART: RRR, normal S1S2, pulses present bilaterally CHEST/LUNGS: CTA B, Symmetrical chest expansion, good air entry bilaterally GI/Abdomen: soft, NTND, good bowel sounds, no guarding or rebound /Bladder: no suprapubic tenderness, no CVA or paraspinal tenderness EXT/Skin: no c/c/e, no obvious rash MSK: bilateral leg amputee with stump, left stump with drainage Neuro: CN 2-12 grossly intact, no new focal deficits Psych: calm - Constitutional Vitals: Temp Pulse Resp BP Pulse Ox 98.7 F 95 H 18 119/60 97 07/29/18 08:00 07/29/18 08:00 07/29/18 08:00 07/29/18 08:00 07/28/18 20:57 General appearance: Present: no acute distress Results - Labs CBC & Chem 7: 07/29/18 05:21 07/29/18 05:21 Labs: Laboratory Last Values WBC 10.2 K/mm3 (4.5-11.0) 07/29/18 05:21 RBC 3.77 M/mm3 (3.65-5.03) 07/29/18 05:21 Hgb 8.4 gm/dl (10.1-14.3) L 07/29/18 05:21 Hct 27.2 % (30.3-42.9) L 07/29/18 05:21 MCV 72 fl (79-97) L 07/29/18 05:21 MCH 22 pg (28-32) L 07/29/18 05:21 MCHC 31 % (30-34) 07/29/18 05:21 RDW 25.7 % (13.2-15.2) H 07/29/18 05:21 Plt Count 201 K/mm3 (140-440) 07/29/18 05:21 Lymph % (Auto) Senior Education Specialist 07/26/18 17:34 Caroline % (Auto) Senior Education Specialist 07/26/18 17:34 Eos % (Auto) Senior Education Specialist 07/26/18 17:34 Baso % (Auto) Senior Education Specialist 07/26/18 17:34 Lymph # Senior Education Specialist 07/26/18 17:34 Caroline # Senior Education Specialist 07/26/18 17:34 Eos # Senior Education Specialist 07/26/18 17:34 Baso # Senior Education Specialist 07/26/18 17:34 Add Manual Diff Complete 07/27/18 04:48 Total Counted 100 07/27/18 04:48 Seg Neutrophils % Senior Education Specialist 07/26/18 17:34 Seg Neuts % (Manual) 92.0 % (40.0-70.0) H 07/27/18 04:48 Band Neutrophils % 0 % 07/27/18 04:48 Lymphocytes % (Manual) 4.0 % (13.4-35.0) L 07/27/18 04:48 Reactive Lymphs % (Man) 0 % 07/27/18 04:48 Monocytes % (Manual) 3.0 % (0.0-7.3) 07/27/18 04:48 Eosinophils % (Manual) 0 % (0.0-4.3) 07/27/18 04:48 Basophils % (Manual) 1.0 % (0.0-1.8) 07/27/18 04:48 Metamyelocytes % 0 % 07/27/18 04:48 Myelocytes % 0 % 07/27/18 04:48 Promyelocytes % 0 % 07/27/18 04:48 Blast Cells % 0 % 07/27/18 04:48 Nucleated RBC % 1.0 % (0.0-0.9) H 07/27/18 04:48 Seg Neutrophils # Senior Education Specialist 07/26/18 17:34 Seg Neutrophils # Man 11.0 K/mm3 (1.8-7.7) H 07/27/18 04:48 Band Neutrophils # 0.0 K/mm3 07/27/18 04:48 Lymphocytes # (Manual) 0.5 K/mm3 (1.2-5.4) L 07/27/18 04:48 Abs React Lymphs (Man) 0.0 K/mm3 07/27/18 04:48 Monocytes # (Manual) 0.4 K/mm3 (0.0-0.8) 07/27/18 04:48 Eosinophils # (Manual) 0.0 K/mm3 (0.0-0.4) 07/27/18 04:48 Basophils # (Manual) 0.1 K/mm3 (0.0-0.1) 07/27/18 04:48 Metamyelocytes # 0.0 K/mm3 07/27/18 04:48 Myelocytes # 0.0 K/mm3 07/27/18 04:48 Promyelocytes # 0.0 K/mm3 07/27/18 04:48 Blast Cells # 0.0 K/mm3 07/27/18 04:48 WBC Morphology Not Reportable 07/27/18 04:48 Hypersegmented Neuts Not Reportable 07/27/18 04:48 Hyposegmented Neuts Not Reportable 07/27/18 04:48 Hypogranular Neuts Not Reportable 07/27/18 04:48 Smudge Cells Not Reportable 07/27/18 04:48 Toxic Granulation Not Reportable 07/27/18 04:48 Toxic Vacuolation Not Reportable 07/27/18 04:48 Dohle Bodies Not Reportable 07/27/18 04:48 Pelger-Huet Anomaly Not Reportable 07/27/18 04:48 Bharti Rods Not Reportable 07/27/18 04:48 Platelet Estimate Consistent w auto 07/27/18 04:48 Clumped Platelets Not Reportable 07/27/18 04:48 Plt Clumps, EDTA Not Reportable 07/27/18 04:48 Large Platelets Not Reportable 07/27/18 04:48 Giant Platelets Not Reportable 07/27/18 04:48 Platelet Satelliting Not Reportable 07/27/18 04:48 Plt Morphology Comment Not Reportable 07/27/18 04:48 RBC Morphology Not Reportable 07/27/18 04:48 Dimorphic RBCs Not Reportable 07/27/18 04:48 Polychromasia Not Reportable 07/27/18 04:48 Hypochromasia 1+ 07/27/18 04:48 Poikilocytosis 1+ 07/27/18 04:48 Anisocytosis 1+ 07/27/18 04:48 Microcytosis Not Reportable 07/27/18 04:48 Macrocytosis Not Reportable 07/27/18 04:48 Spherocytes Not Reportable 07/27/18 04:48 Pappenheimer Bodies Not Reportable 07/27/18 04:48 Sickle Cells Not Reportable 07/27/18 04:48 Target Cells Not Reportable 07/27/18 04:48 Tear Drop Cells Rare 07/27/18 04:48 Ovalocytes Rare 07/27/18 04:48 Helmet Cells Not Reportable 07/27/18 04:48 Vidal-[place] Life Bodies Not Reportable 07/27/18 04:48 [place] Rings Not Reportable 07/27/18 04:48 Phoebe Cells Not Reportable 07/27/18 04:48 Bite Cells Not Reportable 07/27/18 04:48 Crenated Cell Not Reportable 07/27/18 04:48 Elliptocytes Not Reportable 07/27/18 04:48 Acanthocytes (Spur) Rare 07/27/18 04:48 Rouleaux Not Reportable 07/27/18 04:48 Hemoglobin C Crystals Not Reportable 07/27/18 04:48 Schistocytes Not Reportable 07/27/18 04:48 Malaria parasites Not Reportable 07/27/18 04:48 Lui Bodies Not Reportable 07/27/18 04:48 Hem Pathologist Commnt No 07/27/18 04:48 PT 15.0 Sec. (12.2-14.9) H 07/26/18 17:34 INR 1.12 (0.87-1.13) 07/26/18 17:34 APTT 22.1 Sec. (24.2-36.6) L 07/26/18 17:34 Sodium 144 mmol/L (137-145) 07/29/18 05:21 Potassium 4.1 mmol/L (3.6-5.0) 07/29/18 05:21 Chloride 109.6 mmol/L (98-107) H 07/29/18 05:21 Carbon Dioxide 22 mmol/L (22-30) 07/29/18 05:21 Anion Gap 17 mmol/L 07/29/18 05:21 BUN 33 mg/dL (7-17) H 07/29/18 05:21 Creatinine 1.1 mg/dL (0.7-1.2) 07/29/18 05:21 Estimated GFR 58 ml/min 07/29/18 05:21 BUN/Creatinine Ratio 30 % 07/29/18 05:21 Glucose 106 mg/dL (65-100) H 07/29/18 05:21 POC Glucose 144 (70-105) H 07/29/18 11:44 Hemoglobin A1c 5.4 % (4-6) 07/26/18 23:00 Calcium 9.6 mg/dL (8.4-10.2) 07/29/18 05:21 Total Bilirubin 1.70 mg/dL (0.1-1.2) H 07/27/18 04:48 AST 41 units/L (5-40) H 07/27/18 04:48 ALT 25 units/L (7-56) 07/27/18 04:48 Alkaline Phosphatase 90 units/L (35-129) 07/27/18 04:48 Total Protein 7.6 g/dL (6.3-8.2) 07/27/18 04:48 Albumin 3.5 g/dL (3.9-5) L 07/27/18 04:48 Albumin/Globulin Ratio 0.9 % 07/27/18 04:48 TSH 0.300 mlU/mL (0.270-4.200) 07/28/18 03:44 Urine Color Yellow (Yellow) 07/28/18 16:35 Urine Turbidity Clear (Clear) 07/28/18 16:35 Urine pH 5.0 (5.0-7.0) 07/28/18 16:35 Ur Specific [place] 1.016 (1.003-1.030) 07/28/18 16:35 Urine Protein <15 mg/dl mg/dL (Negative) 07/28/18 16:35 Urine Glucose (UA) Neg mg/dL (Negative) 07/28/18 16:35 Urine Ketones Neg mg/dL (Negative) 07/28/18 16:35 Urine Blood Neg (Negative) 07/28/18 16:35 Urine Nitrite Neg (Negative) 07/28/18 16:35 Urine Bilirubin Neg (Negative) 07/28/18 16:35 Urine Urobilinogen < 2.0 mg/dL (<2.0) 07/28/18 16:35 Ur Leukocyte Esterase Neg (Negative) 07/28/18 16:35 Urine WBC (Auto) < 1.0 /HPF (0.0-6.0) 07/28/18 16:35 Urine RBC (Auto) 2.0 /HPF (0.0-6.0) 07/28/18 16:35 U Epithel Cells (Auto) < 1.0 /HPF (0-13.0) 07/28/18 16:35 Urine Mucus Few /HPF 07/28/18 16:35 Blood Type A POSITIVE 07/26/18 17:32 Antibody Screen Negative 07/26/18 17:32 Crossmatch See Detail 07/26/18 17:32
[2018-07-29] MEDS: PROTONIX PO SCH (13:46)
[2018-07-29] MEDS: NORCO 10/325 PO PRN (17:25)
--- NOTE | 2018-07-29 20:05 | Event Note ---
Date: 07/29/18 No change in H/H, and no bleeding. No further GI recommendations, other than noted yesterday. Will sign off. Thanks.
[2018-07-29] MEDS: REMERON PO SCH (21:43)
[2018-07-30 04:35] LABS: Mean Corpuscular HGB Conc 29 % (30-34); Mean Corpuscular Volume 76 fl (79-97); Platelet Count 178 K/mm3 (140-440); Red Blood Count 3.79 M/mm3 (3.65-5.03)
[2018-07-30 04:39] LABS: BUN/Creatinine Ratio 30; Blood Urea Nitrogen 30 mg/dL (7-17); Calcium 9.7 mg/dL (8.4-10.2); Hemolysis Index 118
[2018-07-30 04:41] LABS: Hematocrit 29.1 % (30.3-42.9); Hemoglobin 8.3 gm/dl (10.1-14.3); Mean Corpuscular Hemoglobin 22 pg (28-32); Red Cell Distribution Width 26.7 % (13.2-15.2)
[2018-07-30] MEDS: SYNTHROID PO SCH (05:05)
--- NOTE | 2018-07-30 08:10 | Progress Note ---
Assessment and Plan Assessment and plan: Patient is a 78 yo woman with a past medical history of hypertension, Advance Dementia, hypothyrodism, chronic metformin use for weight loss, chronic GI blood loss anemia, Right carotid endartectomy 04/2018, large external hemorrhoids s/p snare, CVA with right hemiparesis and bilateral BKA secondary to PVD who presented to [facility] ED with malaise and AMS. Patient was discharged on 05/30/18. She came back on 07/15/18 to the ED for Rectal pain from hemorrhoids 05/30/18 Colonoscopy Transverse Colon 8 mm sessile polyp s/p hot snare polypectomy , large external hemorrhoid, 05/28/18 EGD findings of small proximal esophageal diverticulum, distal esophageal ring like stricture through which scope passed readily, located at Z- line 36cm, 4 cm hiatal hernia, normal stomach, duoduneum and bulb. * Ultrasound Abdomen: Pneumobilia, the CBD measures 7.1mm. The gallbladder is not confidently identified, correlate with surgical history, mild chronic renal parenchymal disease. * +FOBT in ED Symptomatic Acute on chronic blood loss anemia with symptoms Transfuse 2 units of PRBC Need outpatient pill camera IV Protonix started Left stump ulcer consult Wound care Acute Encephalopathy, with Odynophagia and dehydration, renal failue consulted speech therapy Microcytic anemia most likely iron deficiency anemia d/w Dr. Phil Luis, GI, started Iron infusion on 07/27/18 x 5 days she pulled out her IV line on Monday, ordered midline to be place. Hemorrhoids s/p repair GI following Acute kidney injury IV fluids for now Vasomotor nephropathy repeat bmp am Dementia with , the Remeron really helps, so it was restarted restraints as needed, she ignores personal safety, no restraints needed in >24 hours fall precaution Hypertension continue home medication Hypothyroidism re-start synthroid COPD (chronic obstructive pulmonary disease) Continue duo nebs DVT prophylaxis SCDs GI prophylaxis PPI Disposition: continue inpatient care, day 3/5 of Iron infusion, then placement per daughter, Maryanne Cordero @ [phone]: She visited and wants [facility] in [place], [place]. They have a bed. Await placement History Interval history: Patient was seen and examined. Follow-up on current diagnosis of malaise. Overnight uneventful. Patient is confused. Imaging, nursing note, chart, labs and old chart reviewed. She pulled out IV yesterday. Daughter Maryanne Cordero at bedside Hospitalist Physical - Physical exam Narrative exam: GEN: WDWN, NAD, Awake, Alert, confused, bmi 45.7 HEENT: NCAT, EOMI, PERRL, OP Clear NECK: supple, no adenopathy, no thyromegaly, no JVD CVS/HEART: RRR, normal S1S2, pulses present bilaterally CHEST/LUNGS: CTA B, Symmetrical chest expansion, good air entry bilaterally GI/Abdomen: soft, NTND, good bowel sounds, no guarding or rebound /Bladder: no suprapubic tenderness, no CVA or paraspinal tenderness EXT/Skin: left stump has a nickel size ulcer with greyish material around open MSK: bilateral leg amputee with stump, left stump with drainage Neuro: CN 2-12 grossly intact, no new focal deficits Psych: calm - Constitutional Vitals: Temp Pulse Resp BP Pulse Ox 98.1 F 71 16 125/27 98 07/30/18 01:30 07/30/18 01:30 07/30/18 01:30 07/30/18 01:30 07/30/18 01:30 General appearance: Present: no acute distress Results - Labs CBC & Chem 7: 07/30/18 02:51 07/30/18 02:51 Labs: Laboratory Last Values WBC 10.4 K/mm3 (4.5-11.0) 07/30/18 02:51 RBC 3.79 M/mm3 (3.65-5.03) 07/30/18 02:51 Hgb 8.3 gm/dl (10.1-14.3) L 07/30/18 02:51 Hct 29.1 % (30.3-42.9) L 07/30/18 02:51 MCV 76 fl (79-97) L 07/30/18 02:51 MCH 22 pg (28-32) L 07/30/18 02:51 MCHC 29 % (30-34) L 07/30/18 02:51 RDW 26.7 % (13.2-15.2) H 07/30/18 02:51 Plt Count 178 K/mm3 (140-440) 07/30/18 02:51 Lymph % (Auto) Magazine Keeper 07/26/18 17:34 Frontier % (Auto) Magazine Keeper 07/26/18 17:34 Eos % (Auto) Magazine Keeper 18 17:34 Baso % (Auto) Magazine Keeper 07/26/18 17:34 Lymph # Magazine Keeper 07/26/18 17:34 Frontier # Magazine Keeper 07/26/18 17:34 Eos # Magazine Keeper 07/26/18 17:34 Baso # Magazine Keeper 07/26/18 17:34 Add Manual Diff Complete 07/27/18 04:48 Total Counted 100 07/27/18 04:48 Seg Neutrophils % Magazine Keeper 07/26/18 17:34 Seg Neuts % (Manual) 92.0 % (40.0-70.0) H 07/27/18 04:48 Band Neutrophils % 0 % 07/27/18 04:48 Lymphocytes % (Manual) 4.0 % (13.4-35.0) L 07/27/18 04:48 Reactive Lymphs % (Man) 0 % 07/27/18 04:48 Monocytes % (Manual) 3.0 % (0.0-7.3) 07/27/18 04:48 Eosinophils % (Manual) 0 % (0.0-4.3) 07/27/18 04:48 Basophils % (Manual) 1.0 % (0.0-1.8) 07/27/18 04:48 Metamyelocytes % 0 % 07/27/18 04:48 Myelocytes % 0 % 07/27/18 04:48 Promyelocytes % 0 % 07/27/18 04:48 Blast Cells % 0 % 07/27/18 04:48 Nucleated RBC % 1.0 % (0.0-0.9) H 07/27/18 04:48 Seg Neutrophils # Magazine Keeper 07/26/18 17:34 Seg Neutrophils # Man 11.0 K/mm3 (1.8-7.7) H 07/27/18 04:48 Band Neutrophils # 0.0 K/mm3 07/27/18 04:48 Lymphocytes # (Manual) 0.5 K/mm3 (1.2-5.4) L 07/27/18 04:48 Abs React Lymphs (Man) 0.0 K/mm3 07/27/18 04:48 Monocytes # (Manual) 0.4 K/mm3 (0.0-0.8) 07/27/18 04:48 Eosinophils # (Manual) 0.0 K/mm3 (0.0-0.4) 07/27/18 04:48 Basophils # (Manual) 0.1 K/mm3 (0.0-0.1) 07/27/18 04:48 Metamyelocytes # 0.0 K/mm3 07/27/18 04:48 Myelocytes # 0.0 K/mm3 07/27/18 04:48 Promyelocytes # 0.0 K/mm3 07/27/18 04:48 Blast Cells # 0.0 K/mm3 07/27/18 04:48 WBC Morphology Not Reportable 07/27/18 04:48 Hypersegmented Neuts Not Reportable 07/27/18 04:48 Hyposegmented Neuts Not Reportable 07/27/18 04:48 Hypogranular Neuts Not Reportable 07/27/18 04:48 Smudge Cells Not Reportable 07/27/18 04:48 Toxic Granulation Not Reportable 07/27/18 04:48 Toxic Vacuolation Not Reportable 07/27/18 04:48 Dohle Bodies Not Reportable 07/27/18 04:48 Pelger-Huet Anomaly Not Reportable 07/27/18 04:48 Bharti Rods Not Reportable 07/27/18 04:48 Platelet Estimate Consistent w auto 07/27/18 04:48 Clumped Platelets Not Reportable 07/27/18 04:48 Plt Clumps, EDTA Not Reportable 07/27/18 04:48 Large Platelets Not Reportable 07/27/18 04:48 Giant Platelets Not Reportable 07/27/18 04:48 Platelet Satelliting Not Reportable 07/27/18 04:48 Plt Morphology Comment Not Reportable 07/27/18 04:48 RBC Morphology Not Reportable 07/27/18 04:48 Dimorphic RBCs Not Reportable 07/27/18 04:48 Polychromasia Not Reportable 07/27/18 04:48 Hypochromasia 1+ 07/27/18 04:48 Poikilocytosis 1+ 07/27/18 04:48 Anisocytosis 1+ 07/27/18 04:48 Microcytosis Not Reportable 07/27/18 04:48 Macrocytosis Not Reportable 07/27/18 04:48 Spherocytes Not Reportable 07/27/18 04:48 Pappenheimer Bodies Not Reportable 07/27/18 04:48 Sickle Cells Not Reportable 07/27/18 04:48 Target Cells Not Reportable 07/27/18 04:48 Tear Drop Cells Rare 07/27/18 04:48 Ovalocytes Rare 07/27/18 04:48 Helmet Cells Not Reportable 07/27/18 04:48 Vidal-Beatty Bodies Not Reportable 07/27/18 04:48 [place] Rings Not Reportable 07/27/18 04:48 Phoebe Cells Not Reportable 07/27/18 04:48 Bite Cells Not Reportable 07/27/18 04:48 Crenated Cell Not Reportable 07/27/18 04:48 Elliptocytes Not Reportable 07/27/18 04:48 Acanthocytes (Spur) Rare 07/27/18 04:48 Rouleaux Not Reportable 07/27/18 04:48 Hemoglobin C Crystals Not Reportable 07/27/18 04:48 Schistocytes Not Reportable 07/27/18 04:48 Malaria parasites Not Reportable 07/27/18 04:48 Lui Bodies Not Reportable 07/27/18 04:48 Hem Pathologist Commnt No 07/27/18 04:48 PT 15.0 Sec. (12.2-14.9) H 07/26/18 17:34 INR 1.12 (0.87-1.13) 07/26/18 17:34 APTT 22.1 Sec. (24.2-36.6) L 07/26/18 17:34 Sodium 140 mmol/L (137-145) 07/30/18 02:51 Potassium 4.6 mmol/L (3.6-5.0) 07/30/18 02:51 Chloride 110.0 mmol/L (98-107) H 07/30/18 02:51 Carbon Dioxide 16 mmol/L (22-30) L 07/30/18 02:51 Anion Gap 19 mmol/L 07/30/18 02:51 BUN 30 mg/dL (7-17) H 07/30/18 02:51 Creatinine 1.0 mg/dL (0.7-1.2) 07/30/18 02:51 Estimated GFR > 60 ml/min 07/30/18 02:51 BUN/Creatinine Ratio 30 % 07/30/18 02:51 Glucose 80 mg/dL (65-100) 07/30/18 02:51 POC Glucose 106 (70-105) H 07/30/18 08:04 Hemoglobin A1c 5.4 % (4-6) 07/26/18 23:00 Calcium 9.7 mg/dL (8.4-10.2) 07/30/18 02:51 Total Bilirubin 1.70 mg/dL (0.1-1.2) H 07/27/18 04:48 AST 41 units/L (5-40) H 07/27/18 04:48 ALT 25 units/L (7-56) 07/27/18 04:48 Alkaline Phosphatase 90 units/L (35-129) 07/27/18 04:48 Total Protein 7.6 g/dL (6.3-8.2) 07/27/18 04:48 Albumin 3.5 g/dL (3.9-5) L 07/27/18 04:48 Albumin/Globulin Ratio 0.9 % 07/27/18 04:48 TSH 0.300 mlU/mL (0.270-4.200) 07/28/18 03:44 Urine Color Yellow (Yellow) 07/28/18 16:35 Urine Turbidity Clear (Clear) 07/28/18 16:35 Urine pH 5.0 (5.0-7.0) 07/28/18 16:35 Ur Specific [place] 1.016 (1.003-1.030) 07/28/18 16:35 Urine Protein <15 mg/dl mg/dL (Negative) 07/28/18 16:35 Urine Glucose (UA) Neg mg/dL (Negative) 07/28/18 16:35 Urine Ketones Neg mg/dL (Negative) 07/28/18 16:35 Urine Blood Neg (Negative) 07/28/18 16:35 Urine Nitrite Neg (Negative) 07/28/18 16:35 Urine Bilirubin Neg (Negative) 07/28/18 16:35 Urine Urobilinogen < 2.0 mg/dL (<2.0) 07/28/18 16:35 Ur Leukocyte Esterase Neg (Negative) 07/28/18 16:35 Urine WBC (Auto) < 1.0 /HPF (0.0-6.0) 07/28/18 16:35 Urine RBC (Auto) 2.0 /HPF (0.0-6.0) 07/28/18 16:35 U Epithel Cells (Auto) < 1.0 /HPF (0-13.0) 07/28/18 16:35 Urine Mucus Few /HPF 07/28/18 16:35 Blood Type A POSITIVE 07/26/18 17:32 Antibody Screen Negative 07/26/18 17:32 Crossmatch See Detail 07/26/18 17:32
[2018-07-30] MEDS: SODIUM CHLORIDE FLUSH SYRINGE 10 ML IV PRN (10:14)
[2018-07-30] MEDS: NACL 0.9% 1000 ML 1,000 ML IV SCH ×2 (10:14→22:37)
[2018-07-30] MEDS: PROTONIX PO SCH (10:15)
[2018-07-30] MEDS: FERRLECIT 125 MG in NACL 0.9% 100 ML IV SCH (10:15)
[2018-07-30] MEDS: LOPRESSOR PO SCH (10:15)
[2018-07-30] MEDS: NORCO 10/325 PO PRN (17:42)
[2018-07-30] MEDS: REMERON PO SCH (22:38)
[2018-07-31 06:21] LABS: Hemoglobin 8.2 gm/dl (10.1-14.3); Mean Corpuscular HGB Conc 30 % (30-34); Mean Corpuscular Volume 75 fl (79-97); Platelet Count 141 K/mm3 (140-440); Red Blood Count 3.61 M/mm3 (3.65-5.03)
[2018-07-31 06:27] LABS: Mean Corpuscular Hemoglobin 23 pg (28-32); Red Cell Distribution Width 27.8 % (13.2-15.2)
[2018-07-31 06:47] LABS: BUN/Creatinine Ratio 23; Blood Urea Nitrogen 23 mg/dL (7-17); Calcium 9.1 mg/dL (8.4-10.2); Hemolysis Index 3
[2018-07-31] MEDS: SYNTHROID PO SCH (06:48)
[2018-07-31] MEDS: NORCO 10/325 PO PRN (06:48)
[2018-07-31] MEDS: PROTONIX PO SCH (09:54)
[2018-07-31] MEDS: FERRLECIT 125 MG in NACL 0.9% 100 ML IV SCH (09:54)
[2018-07-31] MEDS: LOPRESSOR PO SCH (10:00)
--- NOTE | 2018-07-31 12:49 | Progress Note ---
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 Patient was discharged on 05/30/18. She came back on 07/15/18 to the ED for Rectal pain from hemorrhoids 05/30/18 Colonoscopy Transverse Colon 8 mm sessile polyp s/p hot snare polypectomy , large external hemorrhoid, 05/28/18 EGD findings of small proximal esophageal diverticulum, distal esophageal ring like stricture through which scope passed readily, located at Z- line 36cm, 4 cm hiatal hernia, normal stomach, duoduneum and bulb. * Ultrasound Abdomen: Pneumobilia, the CBD measures 7.1mm. The gallbladder is not confidently identified, correlate with surgical history, mild chronic renal parenchymal disease. * +FOBT in ED Symptomatic Acute on chronic blood loss anemia with symptoms Transfuse 2 units of PRBC Need outpatient pill camera IV Protonix started Left stump ulcer consult Wound care Acute Encephalopathy, with Odynophagia and dehydration, renal failue consulted speech therapy Microcytic anemia most likely iron deficiency anemia d/w Dr. Phil Luis, GI, started Iron infusion on 07/27/18 x 5 days she pulled out her IV line on Monday, ordered midline to be place. Hemorrhoids s/p repair GI following Acute kidney injury IV fluids for now Vasomotor nephropathy repeat bmp am Dementia with , the Remeron really helps, so it was restarted restraints as needed, she ignores personal safety, no restraints needed in >24 hours fall precaution Hypertension continue home medication Hypothyroidism re-start synthroid COPD (chronic obstructive pulmonary disease) Continue duo nebs DVT prophylaxis SCDs GI prophylaxis PPI Disposition: continue inpatient care, day 3/5 of Iron infusion, then placement per daughter, Maryanne Cordero @ [phone]: She visited and wants [facility] in [place], [place]. They have a bed. Await placement Hospitalist Physical - Constitutional Vitals: Temp Pulse Resp BP Pulse Ox 98.0 F 60 18 128/26 97 07/31/18 07:50 07/31/18 10:00 07/31/18 08:23 07/31/18 10:00 07/31/18 07:50 General appearance: Present: no acute distress Results - Labs CBC & Chem 7: 07/31/18 05:52 07/31/18 05:52 Labs: Laboratory Last Values WBC 6.9 K/mm3 (4.5-11.0) 07/31/18 05:52 RBC 3.61 M/mm3 (3.65-5.03) L 07/31/18 05:52 Hgb 8.2 gm/dl (10.1-14.3) L 07/31/18 05:52 Hct 27.0 % (30.3-42.9) L 07/31/18 05:52 MCV 75 fl (79-97) L 07/31/18 05:52 MCH 23 pg (28-32) L 07/31/18 05:52 MCHC 30 % (30-34) 07/31/18 05:52 RDW 27.8 % (13.2-15.2) H 07/31/18 05:52 Plt Count 141 K/mm3 (140-440) 07/31/18 05:52 Lymph % (Auto) Cigar Making Supervisor 07/26/18 17:34 Callaway % (Auto) Cigar Making Supervisor 07/26/18 17:34 Eos % (Auto) Cigar Making Supervisor 07/26/18 17:34 Baso % (Auto) Cigar Making Supervisor 07/26/18 17:34 Lymph # Cigar Making Supervisor 07/26/18 17:34 Callaway # Cigar Making Supervisor 07/26/18 17:34 Eos # Cigar Making Supervisor 07/26/18 17:34 Baso # Cigar Making Supervisor 07/26/18 17:34 Add Manual Diff Complete 07/27/18 04:48 Total Counted 100 07/27/18 04:48 Seg Neutrophils % Cigar Making Supervisor 07/26/18 17:34 Seg Neuts % (Manual) 92.0 % (40.0-70.0) H 07/27/18 04:48 Band Neutrophils % 0 % 07/27/18 04:48 Lymphocytes % (Manual) 4.0 % (13.4-35.0) L 07/27/18 04:48 Reactive Lymphs % (Man) 0 % 07/27/18 04:48 Monocytes % (Manual) 3.0 % (0.0-7.3) 07/27/18 04:48 Eosinophils % (Manual) 0 % (0.0-4.3) 07/27/18 04:48 Basophils % (Manual) 1.0 % (0.0-1.8) 07/27/18 04:48 Metamyelocytes % 0 % 07/27/18 04:48 Myelocytes % 0 % 07/27/18 04:48 Promyelocytes % 0 % 07/27/18 04:48 Blast Cells % 0 % 07/27/18 04:48 Nucleated RBC % 1.0 % (0.0-0.9) H 07/27/18 04:48 Seg Neutrophils # Cigar Making Supervisor 07/26/18 17:34 Seg Neutrophils # Man 11.0 K/mm3 (1.8-7.7) H 07/27/18 04:48 Band Neutrophils # 0.0 K/mm3 07/27/18 04:48 Lymphocytes # (Manual) 0.5 K/mm3 (1.2-5.4) L 07/27/18 04:48 Abs React Lymphs (Man) 0.0 K/mm3 07/27/18 04:48 Monocytes # (Manual) 0.4 K/mm3 (0.0-0.8) 07/27/18 04:48 Eosinophils # (Manual) 0.0 K/mm3 (0.0-0.4) 07/27/18 04:48 Basophils # (Manual) 0.1 K/mm3 (0.0-0.1) 07/27/18 04:48 Metamyelocytes # 0.0 K/mm3 07/27/18 04:48 Myelocytes # 0.0 K/mm3 07/27/18 04:48 Promyelocytes # 0.0 K/mm3 07/27/18 04:48 Blast Cells # 0.0 K/mm3 07/27/18 04:48 WBC Morphology Not Reportable 07/27/18 04:48 Hypersegmented Neuts Not Reportable 07/27/18 04:48 Hyposegmented Neuts Not Reportable 07/27/18 04:48 Hypogranular Neuts Not Reportable 07/27/18 04:48 Smudge Cells Not Reportable 07/27/18 04:48 Toxic Granulation Not Reportable 07/27/18 04:48 Toxic Vacuolation Not Reportable 07/27/18 04:48 Dohle Bodies Not Reportable 07/27/18 04:48 Pelger-Huet Anomaly Not Reportable 07/27/18 04:48 Bharti Rods Not Reportable 07/27/18 04:48 Platelet Estimate Consistent w auto 07/27/18 04:48 Clumped Platelets Not Reportable 07/27/18 04:48 Plt Clumps, EDTA Not Reportable 07/27/18 04:48 Large Platelets Not Reportable 07/27/18 04:48 Giant Platelets Not Reportable 07/27/18 04:48 Platelet Satelliting Not Reportable 07/27/18 04:48 Plt Morphology Comment Not Reportable 07/27/18 04:48 RBC Morphology Not Reportable 07/27/18 04:48 Dimorphic RBCs Not Reportable 07/27/18 04:48 Polychromasia Not Reportable 07/27/18 04:48 Hypochromasia 1+ 07/27/18 04:48 Poikilocytosis 1+ 07/27/18 04:48 Anisocytosis 1+ 07/27/18 04:48 Microcytosis Not Reportable 07/27/18 04:48 Macrocytosis Not Reportable 07/27/18 04:48 Spherocytes Not Reportable 07/27/18 04:48 Pappenheimer Bodies Not Reportable 07/27/18 04:48 Sickle Cells Not Reportable 07/27/18 04:48 Target Cells Not Reportable 07/27/18 04:48 Tear Drop Cells Rare 07/27/18 04:48 Ovalocytes Rare 07/27/18 04:48 Helmet Cells Not Reportable 07/27/18 04:48 Vidal-Van Dyne Bodies Not Reportable 07/27/18 04:48 Woodbridge Rings Not Reportable 07/27/18 04:48 Phoebe Cells Not Reportable 07/27/18 04:48 Bite Cells Not Reportable 07/27/18 04:48 Crenated Cell Not Reportable 07/27/18 04:48 Elliptocytes Not Reportable 07/27/18 04:48 Acanthocytes (Spur) Rare 07/27/18 04:48 Rouleaux Not Reportable 07/27/18 04:48 Hemoglobin C Crystals Not Reportable 07/27/18 04:48 Schistocytes Not Reportable 07/27/18 04:48 Malaria parasites Not Reportable 07/27/18 04:48 Lui Bodies Not Reportable 07/27/18 04:48 Hem Pathologist Commnt No 07/27/18 04:48 PT 15.0 Sec. (12.2-14.9) H 07/26/18 17:34 INR 1.12 (0.87-1.13) 07/26/18 17:34 APTT 22.1 Sec. (24.2-36.6) L 07/26/18 17:34 Sodium 143 mmol/L (137-145) 07/31/18 05:52 Potassium 3.8 mmol/L (3.6-5.0) 07/31/18 05:52 Chloride 111.7 mmol/L (98-107) H 07/31/18 05:52 Carbon Dioxide 21 mmol/L (22-30) L 07/31/18 05:52 Anion Gap 14 mmol/L 07/31/18 05:52 BUN 23 mg/dL (7-17) H 07/31/18 05:52 Creatinine 1.0 mg/dL (0.7-1.2) 07/31/18 05:52 Estimated GFR > 60 ml/min 07/31/18 05:52 BUN/Creatinine Ratio 23 % 07/31/18 05:52 Glucose 95 mg/dL (65-100) 07/31/18 05:52 POC Glucose 100 (70-105) 07/31/18 11:36 Hemoglobin A1c 5.4 % (4-6) 07/26/18 23:00 Calcium 9.1 mg/dL (8.4-10.2) 07/31/18 05:52 Total Bilirubin 1.70 mg/dL (0.1-1.2) H 07/27/18 04:48 AST 41 units/L (5-40) H 07/27/18 04:48 ALT 25 units/L (7-56) 07/27/18 04:48 Alkaline Phosphatase 90 units/L (35-129) 07/27/18 04:48 Total Protein 7.6 g/dL (6.3-8.2) 07/27/18 04:48 Albumin 3.5 g/dL (3.9-5) L 07/27/18 04:48 Albumin/Globulin Ratio 0.9 % 07/27/18 04:48 TSH 0.300 mlU/mL (0.270-4.200) 07/28/18 03:44 Urine Color Yellow (Yellow) 07/28/18 16:35 Urine Turbidity Clear (Clear) 07/28/18 16:35 Urine pH 5.0 (5.0-7.0) 07/28/18 16:35 Ur Specific Holt 1.016 (1.003-1.030) 07/28/18 16:35 Urine Protein <15 mg/dl mg/dL (Negative) 07/28/18 16:35 Urine Glucose (UA) Neg mg/dL (Negative) 07/28/18 16:35 Urine Ketones Neg mg/dL (Negative) 07/28/18 16:35 Urine Blood Neg (Negative) 07/28/18 16:35 Urine Nitrite Neg (Negative) 07/28/18 16:35 Urine Bilirubin Neg (Negative) 07/28/18 16:35 Urine Urobilinogen < 2.0 mg/dL (<2.0) 07/28/18 16:35 Ur Leukocyte Esterase Neg (Negative) 07/28/18 16:35 Urine WBC (Auto) < 1.0 /HPF (0.0-6.0) 07/28/18 16:35 Urine RBC (Auto) 2.0 /HPF (0.0-6.0) 07/28/18 16:35 U Epithel Cells (Auto) < 1.0 /HPF (0-13.0) 07/28/18 16:35 Urine Mucus Few /HPF 07/28/18 16:35 Blood Type A POSITIVE 07/26/18 17:32 Antibody Screen Negative 07/26/18 17:32 Crossmatch See Detail 07/26/18 17:32
[2018-07-31] MEDS: NACL 0.9% 1000 ML 1,000 ML IV SCH (12:54)
--- NOTE | 2018-07-31 13:26 | Discharge Summary ---
Providers - Providers Date of Admission: 07/26/18 19:28 Attending physician: KIMBERLEY HERRERA MD 07/26/18 Consult to Case Management [CONS] Routine Services Needed at Discharge: Home Health Services Notified:: yes Phone number called:: [phone] Was contact made?: Yes If yes, spoke with:: tali Time called:: 10:01 07/26/18 20:10 Consult to Physician [CONS] Urgent Comment: called answering [email or web address] to [email or web address] Consulting Provider: MICKIE LUIS Physician Instructions: Reason For Exam: anemia, guaic + stool 07/27/18 11:48 Speech Therapy Evaluation and Treat [CONS] Routine Reason For Exam: difficulty swallowing 07/27/18 13:56 Physical Therapy Evaluation and Treat [CONS] Routine Comment: Reason For Exam: Debility 07/27/18 13:57 Occupational Therapy Evaluate and Treat [CONS] Routine Comment: Reason For Exam: Debility 07/29/18 17:49 Consult to Wound/ET Nurse [CONS] Routine Reason For Exam: wound eval - Lt stump open area 07/30/18 08:27 Consult to PICC Line RN [CONS] Urgent Reason For Exam: INSERT MIDLINE Type Line:: Midline 07/31/18 13:18 Consult to Mental Health [CONS] Routine Reason For Exam: behavioral disturbance Place consult to:: [facility] Primary care physician: [facility] SPECIALIST Hospitalization Condition: Stable Hospital course: Patient is a 78 yo woman with a past medical history of hypertension, Advance Dementia, hypothyrodism, chronic metformin use for weight loss, chronic GI blood loss anemia, Right carotid endartectomy 04/2018, large external hemorrhoids s/p snare, 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 Patient was discharged on 05/30/18. She came back on 07/15/18 to the ED for Rectal pain from hemorrhoids 05/30/18 Colonoscopy Transverse Colon 8 mm sessile polyp s/p hot snare polypectomy , large external hemorrhoid, 05/28/18 EGD findings of small proximal esophageal diverticulum, distal esophageal ring like stricture through which scope passed readily, located at Z- line 36cm, 4 cm hiatal hernia, normal stomach, duoduneum and bulb. * Ultrasound Abdomen: Pneumobilia, the CBD measures 7.1mm. The gallbladder is not confidently identified, correlate with surgical history, mild chronic renal parenchymal disease. * +FOBT in ED Symptomatic Acute on chronic blood loss anemia with symptoms Transfuse 2 units of PRBC Need outpatient pill camera IV Protonix started Left stump ulcer consult Wound care Acute Encephalopathy, with Odynophagia and dehydration, renal failue consulted speech therapy Microcytic anemia most likely iron deficiency anemia d/w Dr. Mickie Luis, GI, started Iron infusion on 07/27/18 x 5 days she pulled out her IV line on Monday, ordered midline to be place. Hemorrhoids s/p repair GI following Acute kidney injury IV fluids for now Vasomotor nephropathy repeat bmp am Dementia with , the Remeron really helps, so it was restarted restraints as needed, she ignores personal safety, no restraints needed in >24 hours fall precaution Hypertension continue home medication Hypothyroidism re-start synthroid COPD (chronic obstructive pulmonary disease) Continue duo nebs DVT prophylaxis SCDs GI prophylaxis PPI Disposition: continue inpatient care, day 3 of Iron infusion, then placement per daughter, Maryanne Cordero @ [phone]: She visited and wants [facility] in [place], [place]. They have a bed. Await placement Disposition: DC/TX-03 SNF W [facility]ARE CERT Time spent for discharge: 30 minutes Core Measure Documentation - Palliative Care Palliative Care/ Comfort Measures: Not Applicable - Core Measures Any of the following diagnoses?: none Exam - Constitutional Vitals: Temp Pulse Resp BP Pulse Ox 98.0 F 60 18 128/26 97 07/31/18 07:50 07/31/18 10:00 07/31/18 08:23 07/31/18 10:00 07/31/18 07:50 General appearance: Present: no acute distress, well-nourished - EENT Eyes: Present: PERRL ENT: hearing intact, clear oral mucosa - Neck Neck: Present: supple, normal ROM - Respiratory Respiratory effort: normal Respiratory: bilateral: CTA - Cardiovascular Heart Sounds: Present: S1 & S2. Absent: rub, click - Extremities Extremities: pulses symmetrical, No edema, abnormal (bilateral AKA) Peripheral Pulses: within normal limits - Abdominal General gastrointestinal: Present: soft, non-tender, non-distended, normal bowel sounds Female genitourinary: Present: normal - Integumentary Integumentary: Present: clear, warm, dry - Musculoskeletal Musculoskeletal: gait normal, strength equal bilaterally - Psychiatric Psychiatric: no appropriate mood/affect (demented, confused), no intact judgment & insight - Neurologic Neurologic: CNII-XII intact, moves all extremities Plan Follow up with: PRIMARY CARE, [Primary Care Provider] - 7 Days KATY ARCE MD [Staff Physician] - 7 Days Prescriptions: HYDROcodone/APAP 10-325 [Holbrook 10-325 mg TAB] 1 each PO Q8H PRN #7 tablet PRN Reason: Pain, Moderate (4-6)
[2018-07-31] MEDS ORDERED: TUCKS PAD TP SCH (14:00)
[2018-07-31] MEDS ORDERED: RisperDAL PO SCH (14:00)
[2018-07-31 15:11] VITALS: BP 105/56
[2018-08-01] MEDS ORDERED: THERAGRAN Tab PO SCH (10:00)
== END 2018-07-31 16:50 | DRG 811 ==
LOC: ED 15:44 → 2B-ACE 19:28
PROVIDERS: ADMIT Internal Medicine; ATTEND Internal Medicine
PROC: 30233N1 Transfusion of Nonautologous Red Blood Cells into Peripheral Vein, Percutaneous Approach (ICD-10-PCS; principal; 2018-07-26)
DX: D62 Acute posthemorrhagic anemia (principal); N17.0 Acute kidney failure with tubular necrosis; G93.40 Encephalopathy, unspecified; I69.351 Hemiplegia and hemiparesis following cerebral infarction affecting right dominant side; L97.909 Non-pressure chronic ulcer of unspecified part of unspecified lower leg with unspecified severity; K64.4 Residual hemorrhoidal skin tags; J44.9 Chronic obstructive pulmonary disease, unspecified; I10 Essential (primary) hypertension; F03.90 Unspecified dementia, unspecified severity, without behavioral disturbance, psychotic disturbance, mood disturbance, and anxiety; Z89.512 Acquired absence of left leg below knee; Z89.511 Acquired absence of right leg below knee; I73.9 Peripheral vascular disease, unspecified; Z79.82 Long term (current) use of aspirin; K21.9 Gastro-esophageal reflux disease without esophagitis; M19.90 Unspecified osteoarthritis, unspecified site; E11.51 Type 2 diabetes mellitus with diabetic peripheral angiopathy without gangrene; Z90.49 Acquired absence of other specified parts of digestive tract; Z90.710 Acquired absence of both cervix and uterus; D50.9 Iron deficiency anemia, unspecified; R13.10 Dysphagia, unspecified; Z79.84 Long term (current) use of oral hypoglycemic drugs; E03.9 Hypothyroidism, unspecified; E86.0 Dehydration
CPT/HCPCS: 36415; 36430; 76700; 80048; 80053; 81001; 82271; 82962; 83036; 84443; 85007; 85025; 85027; 85610; 85730; 86850; 86900; 86901; 86920; 93005; 93010; C9113; G8978-GP; G8979-GP; G8996-GN; G8998-GN; J1170; J2405; J2916; J7030; J7040; P9016

== ENCOUNTER 2018-08-02 09:00 | Emergency (ER) | payer MEDICARE, OTHER ==
--- NOTE | 2018-08-02 11:18 | Emergency Department Report ---
HPI - General Chief Complaint: Medical Clearance Time Seen by Provider: 08/02/18 10:58 - HPI HPI: 78-year-old AA female presents to the emergency department via EMS from her daughter's home, Maryanne Cordero, with the need for a medical evaluation and some assistance for long term placement. The patient was just recently here from the end of June through July 31 after the patient was found to have a hemoglobin of 5 and was admitted for blood transfusions and evaluation of a source of bleeding. The patient has a past medical history of Alzheimer's dementia, hypertension, CVA and bilateral below knee amputation secondary to previous peripheral vascular disease. Apparently the patient was discharged to her [facility] long term. The daughter says that she had assurances that they were able to handle someone with Alzheimer's dementia and specifically that there were rails along the bed to keep the patient's from falling. When the patient's daughter went to visit her at the long term she found the patient at the edge of the bed precariously ready to fall. At that point she brought her back home. However the daughter says that she is both physically and mentally unable to care for the patient any further and she feels that it is a danger to the patient and herself for her to be there. This is one reason she was sent in to be seen, but the patient's daughter also says that she has concern for another drop in her hemoglobin because she has been weak and cannot help her with any ADLs. The patient herself is confused, most likely secondary to her Alzheimer's dementia, and is a poor historian and and has no complaints at this time. ED Past Medical Hx - Past Medical History Previous Medical History?: Yes Hx Hypertension: Yes Hx Diabetes: Yes (DAUGHTER STATES TAKES METFORMIN FOR WT. LOSS ONLY-NOT DIABETIC ) Hx Deep Vein Thrombosis: No Hx GERD: Yes Hx Renal Disease: Yes Hx Arthritis: Yes - Surgical History Hx Pacemaker: No Hx Internal Defibrillator: No Additional Surgical History: Bilateral bilateral lower extremity amputation - Social History Smoking Status: Never Smoker - Medications Home Medications: Home Medications Medication Instructions Recorded Confirmed Last Taken Type Levothyroxine [Synthroid] 100 mcg PO QAM 05/14/18 07/26/18 Unknown History Metoprolol Tartrate 50 mg PO DAILY 05/14/18 07/26/18 Unknown History Aspirin [Aspirin TAB] 325 mg PO QDAY #30 tablet 05/30/18 07/26/18 Unknown Rx Ipratropium/Albuterol Sulfate 1 ampul IH Q8HRT PRN 07/26/18 07/26/18 Unknown History [DUONEB *Not for PRN Use*] Glycerin/Witch Sammi Pad [Tucks 1 each TP TID box 07/31/18 Unknown Rx Pad] HYDROcodone/APAP 10-325 [Calvin 1 each PO Q8H PRN #7 tablet 07/31/18 Unknown Rx 10-325 mg TAB] Mirtazapine [Remeron] 30 mg PO QHS tablet 07/31/18 Unknown Rx Multivitamin Tab [Multiple Vitamin 1 each PO QDAY tablet 07/31/18 Unknown Rx TAB (Theragran)] Pantoprazole [Protonix TAB] 40 mg PO QDAY tablet 07/31/18 Unknown Rx risperiDONE [RisperDAL] 0.25 mg PO BID tablet 07/31/18 Unknown Rx ED Review of Systems ROS: Stated complaint: AMS Other details as noted in HPI Comment: Unobtainable due to pts medical conditions Physical Exam - Physical Exam Vital Signs: Vital Signs 08/02/18 09:45 Temperature 97.8 F Pulse Rate 71 Respiratory 16 Rate Blood Pressure 107/45 O2 Sat by Pulse 98 Oximetry Physical Exam: GENERAL: The patient is well-developed well-nourished. HENT: Normocephalic. Atraumatic. Patient has moist mucous membranes. EYES: Extraocular motions are intact. NECK: Supple. Trach is midline. CHEST/LUNGS: Clear to auscultation. There is no respiratory distress noted. HEART/CARDIOVASCULAR: Regular. There is no tachycardia. There is no murmur. ABDOMEN: Abdomen is soft, nontender. Patient has normal bowel sounds. There is no abdominal distention. SKIN: Skin is warm and dry. NEURO: The patient is awake and cooperative. Normal speech. MUSCULOSKELETAL: Bilateral below knee amputations. There is no evidence of acute injury. ED Course Vital Signs 08/02/18 09:45 Temperature 97.8 F Pulse Rate 71 Respiratory 16 Rate Blood Pressure 107/45 O2 Sat by Pulse 98 Oximetry - Consultations Consultation #1: I have spoken to the patient's daughter twice. The patient has no medical indication at this time for admission to the hospital. Her hemoglobin is 8.9 which is elevated from her previous visit and there are no signs of any acute bleeding. The rest the labs are unremarkable as well. Vital signs stable throughout her ED course thus far and the patient is resting comfortably. The patient was seen by case management, Reny corey, who had a conversation with the patient's daughter and son separately. The patient was previously accepted to a shelter facility [facility] but the patient had been sent to [facility] at the daughter's request but this did not work out. Case management let the daughter know that there are 2 choices regarding nursing facilities, the previous one in [facility], and [facility]. However , despite the fact that [facility] has a locked unit, it was not necessarily case management or the hospitals recommendation for this particular facility regarding the patient. I spoke with the daughter and let her know that her options are to have the patient return home with her with intermittent home health care, or that she can go to one of these shelter facilities. The patient's daughter is adamant that she is unable to care for her at home. She says that she does not want her mother in [facility] which is so far away from her so she would like for the patient to be placed and [facility] if possible. I recontacted case management who is going to work on getting the patient into [facility]. 08/02/18 13:12 ED Medical Decision Making - Lab Data Result diagrams: 08/02/18 11:16 08/02/18 11:16 - EKG Data -: EKG Interpreted by Me EKG shows normal: sinus rhythm, axis, intervals, QRS complexes, ST-T waves ( isolated T-wave inversion to the 3) Rate: normal - EKG Data When compared to previous EKG there are: previous EKG unavailable Interpretation: normal EKG - Medical Decision Making This patient was sent in from her daughter's home because the daughter is unable to care for her and the daughter did not like the previous shelter facility she was at. Also she wanted her reevaluated for possible drop in her hemoglobin. The patient's hemoglobin was 8.9 which is increased from her previous visit. The patient has a history of dementia but has no complaints. The rest of the labs are mostly unremarkable. EKG did not show any signs of ST elevation [place], ischemia or dysrhythmia. There were many conversations between myself, case management the patient's daughter and the patient has been accepted in transfer to [facility]. I still gave discharge instructions that it is important to follow up with the primary care physician and that the patient should be returned to the emergency department with any signs of any acute distress. - Differential Diagnosis iron deficiency anemia, Alzheimer's dementia, dysrhythmia Critical Care Time: No Critical care attestation.: If time is entered above; I have spent that time in minutes in the direct care of this critically ill patient, excluding procedure time. ED Disposition Clinical Impression: S/P bilateral below knee amputation Anemia Qualifiers: Anemia type: unspecified type Qualified Code(s): D64.9 - Anemia, unspecified Dementia Qualifiers: Dementia type: unspecified type Dementia behavioral disturbance: without behavioral disturbance Qualified Code(s): F03.90 - Unspecified dementia without behavioral disturbance Disposition: DC-01 TO HOME OR SELFCARE Is pt being admited?: No Condition: Stable Instructions: Dementia (ED), Anemia (ED) Additional Instructions: Please follow-up with your primary care physician. Return to the emergency department with any concerns or if any acute distress. Referrals: PRIMARY CAREMD [Primary Care Provider] - 2-3 Days Time of Disposition: 16:16
[2018-08-02 11:44] LABS: Hematocrit 29.1 % (30.3-42.9); Hemoglobin 8.9 gm/dl (10.1-14.3); INR 1.08 (0.87-1.13); Mean Corpuscular HGB Conc 31 % (30-34); Mean Corpuscular Hemoglobin 23 pg (28-32); Mean Corpuscular Volume 76 fl (79-97); Red Blood Count 3.83 M/mm3 (3.65-5.03); Red Cell Distribution Width 30.5 % (13.2-15.2)
[2018-08-02 11:45] LABS: Partial Thromboplastin Time 26.9 Sec. (24.2-36.6); Platelet Count 106 K/mm3 (140-440)
[2018-08-02 12:08] LABS: Alanine Aminotransferase 22 units/L (7-56); BUN/Creatinine Ratio 19; Blood Urea Nitrogen 15 mg/dL (7-17); Calcium 9.7 mg/dL (8.4-10.2); Hemolysis Index 14
[2018-08-02 12:17] LABS: Basophils % (Manual) 0 % (0.0-1.8); Eosinophils % (Manual) 0 % (0.0-4.3); Total Cells Counted 100
[2018-08-02 12:18] LABS: Anisocytosis 3+; Hypochromasia 1+
[2018-08-02 12:19] LABS: Acanthocytes Few; Large Platelets Few; Ovalocytes Few; Platelet Estimate Cons; Poikilocytosis 1+; Tear Drop Cells Few
[2018-08-02 17:17] VITALS: BP 152/68
== END 2018-08-02 18:11 | disposition home or self-care (01) ==
LOC: ED 09:00
DX: D64.9 Anemia, unspecified (principal); F03.90 Unspecified dementia, unspecified severity, without behavioral disturbance, psychotic disturbance, mood disturbance, and anxiety; I10 Essential (primary) hypertension; E11.9 Type 2 diabetes mellitus without complications; K21.9 Gastro-esophageal reflux disease without esophagitis; M19.90 Unspecified osteoarthritis, unspecified site; Z89.512 Acquired absence of left leg below knee; Z89.511 Acquired absence of right leg below knee; Z79.82 Long term (current) use of aspirin
CPT/HCPCS: 36415; 80053; 85007; 85025; 85610; 85730; 93005; 93010; 99284

== ENCOUNTER 2018-08-18 00:24 | Emergency (ER) | payer MEDICARE, OTHER ==
--- NOTE | 2018-08-18 01:36 | Emergency Department Report ---
HPI - General Chief Complaint: Recheck/Abnormal Lab/Rx Time Seen by Provider: 08/18/18 01:17 - HPI HPI: Room 1 The patient is an 78-year-old female presenting with chief complaint of anemia. The patient is a resident in a halfway and reportedly lets were checked revealing a hemoglobin of 7.6. Patient has had a history of anemia of unknown etiology requiring blood transfusion and iron transfusions. The patient has a history of dementia and is unable to provide a history. Patient states she feels okay. Patient denies shortness of breath chest pain or pain of any type. Patient denies bright red blood per rectum or melena Location: [See above] Duration: [See above] Quality: Anemia Severity: Hemoglobin 7.6 Modifying factors: [see above] Context: [see above] Mode of transportation: [not driving] ED Past Medical Hx - Past Medical History Hx Hypertension: Yes Hx CVA: Yes (d/t R carotid artery stenosis) Hx Diabetes: Yes (DAUGHTER STATES TAKES METFORMIN FOR WT. LOSS ONLY-NOT DIABETIC ) Hx GERD: Yes Hx Renal Disease: Yes Hx Arthritis: Yes Hx COPD: Yes Additional medical history: dementia, hemmorrhoids, COPD, hypothyroidism, - Surgical History Additional Surgical History: Bilateral bilateral lower extremity amputation - Family History Family history: no significant - Social History Smoking Status: Former Smoker Substance Use Type: None - Medications Home Medications: Home Medications Medication Instructions Recorded Confirmed Last Taken Type Levothyroxine [Synthroid] 100 mcg PO QAM 05/14/18 07/26/18 Unknown History Metoprolol Tartrate 50 mg PO DAILY 05/14/18 07/26/18 Unknown History Aspirin [Aspirin TAB] 325 mg PO QDAY #30 tablet 05/30/18 07/26/18 Unknown Rx Ipratropium/Albuterol Sulfate 1 ampul IH Q8HRT PRN 07/26/18 07/26/18 Unknown History [DUONEB *Not for PRN Use*] Glycerin/Witch Sammi Pad [Tucks 1 each TP TID box 07/31/18 Unknown Rx Pad] Mirtazapine [Remeron] 30 mg PO QHS tablet 07/31/18 Unknown Rx Multivitamin Tab [Multiple Vitamin 1 each PO QDAY tablet 07/31/18 Unknown Rx TAB (Theragran)] Pantoprazole [Protonix TAB] 40 mg PO QDAY tablet 07/31/18 Unknown Rx risperiDONE [RisperDAL] 0.25 mg PO BID tablet 07/31/18 Unknown Rx Polyethylene Glycol 3350 [Miralax 17 gm PO BID powd.pack 08/13/18 Unknown Rx 3350] Sennosides Tab [Senokot] 17.2 mg PO QHS tablet 08/13/18 Unknown Rx traMADol [Ultram 50 MG tab] 50 mg PO Q6HR PRN #20 tablet 08/13/18 Unknown Rx ED Review of Systems ROS: Stated complaint: LOW BLOOD Other details as noted in HPI Constitutional: no symptoms reported Eyes: denies: eye pain ENT: denies: throat pain Respiratory: denies: shortness of breath Cardiovascular: denies: chest pain Endocrine: no symptoms reported Gastrointestinal: denies: abdominal pain, melena, hematochezia Genitourinary: denies: dysuria Musculoskeletal: denies: back pain Neurological: denies: headache Physical Exam - Physical Exam Vital Signs: Vital Signs 08/18/18 00:43 Temperature 98.5 F Pulse Rate 97 H Respiratory 16 Rate Blood Pressure 182/59 [Left] O2 Sat by Pulse 99 Oximetry Physical Exam: GENERAL: The patient is well-developed well-nourished female lying on stretcher not appearing to be in acute distress. [] HEENT: Normocephalic. Atraumatic. Extraocular motions are intact. Patient has moist mucous membranes. NECK: Supple. Trachea midline. CHEST/LUNGS: Clear to auscultation. There is no respiratory distress noted. HEART/CARDIOVASCULAR: Regular. There is no tachycardia. There is no gallop rub or murmur. ABDOMEN: Abdomen is soft, nontender. Patient has normal bowel sounds. There is no abdominal distention. SKIN: There is no rash. There is no edema. There is no diaphoresis. NEURO: The patient is awake and alert. The patient is cooperative. The patient has normal speech MUSCULOSKELETAL: There is no evidence of acute injury. ED Course Vital Signs 08/18/18 00:43 Temperature 98.5 F Pulse Rate 97 H Respiratory 16 Rate Blood Pressure 182/59 [Left] O2 Sat by Pulse 99 Oximetry ED Medical Decision Making - Lab Data Result diagrams: 08/18/18 02:17 08/18/18 02:17 Laboratory Tests 08/18/18 08/18/18 08/18/18 02:17 02:17 02:17 WBC 8.1 RBC 3.56 L Hgb 8.6 L Hct 27.9 L MCV 78 L MCH 24 L MCHC 31 RDW 30.8 H Plt Count 239 PT 14.6 INR 1.09 APTT 29.8 Sodium 144 Potassium 3.2 L Chloride 109.5 H Carbon Dioxide 24 Anion Gap 14 BUN 15 Creatinine 0.9 Estimated GFR > 60 BUN/Creatinine Ratio 17 Glucose 104 H Calcium 8.6 Blood Type Antibody Screen 08/18/18 02:25 WBC RBC Hgb Hct MCV MCH MCHC RDW Plt Count PT INR APTT Sodium Potassium Chloride Carbon Dioxide Anion Gap BUN Creatinine Estimated GFR BUN/Creatinine Ratio Glucose Calcium Blood Type A POSITIVE Antibody Screen Negative - Medical Decision Making As the patient's blood counts are slightly higher than at her time of discharge from last admission, the patient is asymptomatic and there is no evidence of bleeding the patient will be returned to the halfway - Differential Diagnosis anemia Critical care attestation.: If time is entered above; I have spent that time in minutes in the direct care of this critically ill patient, excluding procedure time. ED Disposition Clinical Impression: Anemia Disposition: [id number]/TX-[id number] ANOTHER TYPE HLTHCARE Is pt being admited?: No Does the pt Need Aspirin: No Condition: Stable Additional Instructions: Return to the emergency department immediately should you develop worsening symptoms, fever, inability to tolerate food or liquid or any other concerns. Time of Disposition: 04:23
[2018-08-18 02:55] LABS: Hematocrit 27.9 % (30.3-42.9); Hemoglobin 8.6 gm/dl (10.1-14.3); Mean Corpuscular HGB Conc 31 % (30-34); Mean Corpuscular Volume 78 fl (79-97); Platelet Count 239 K/mm3 (140-440); Red Blood Count 3.56 M/mm3 (3.65-5.03)
[2018-08-18 03:02] LABS: Mean Corpuscular Hemoglobin 24 pg (28-32); Red Cell Distribution Width 30.8 % (13.2-15.2)
[2018-08-18 03:09] LABS: BUN/Creatinine Ratio 17; Blood Urea Nitrogen 15 mg/dL (7-17); Calcium 8.6 mg/dL (8.4-10.2); Hemolysis Index 9
[2018-08-18 03:17] VITALS: BP 166/98
[2018-08-18 03:22] LABS: INR 1.09 (0.87-1.13)
[2018-08-18 03:23] LABS: Partial Thromboplastin Time 29.8 Sec. (24.2-36.6)
[2018-08-18 04:25] LABS: Basophils % (Manual) 0 % (0.0-1.8); Dimorphic RBC Yes; Total Cells Counted 100
[2018-08-18 04:26] LABS: Hypochromasia 1+
[2018-08-18 04:28] LABS: Large Platelets 1+
[2018-08-18 04:29] LABS: Anisocytosis 2+; Ovalocytes 1+; Platelet Estimate Consistent w Auto
== END 2018-08-18 06:47 | disposition other institution (70) ==
LOC: ED 00:24
DX: D64.9 Anemia, unspecified (principal); I12.9 Hypertensive chronic kidney disease with stage 1 through stage 4 chronic kidney disease, or unspecified chronic kidney disease; N18.9 Chronic kidney disease, unspecified; E11.22 Type 2 diabetes mellitus with diabetic chronic kidney disease; J44.9 Chronic obstructive pulmonary disease, unspecified; K21.9 Gastro-esophageal reflux disease without esophagitis; M19.90 Unspecified osteoarthritis, unspecified site; E03.9 Hypothyroidism, unspecified; Z87.891 Personal history of nicotine dependence; Z89.612 Acquired absence of left leg above knee; Z89.611 Acquired absence of right leg above knee; Z79.82 Long term (current) use of aspirin
CPT/HCPCS: 36415; 80048; 85007; 85025; 85610; 85730; 86850; 86900; 86901; 93005; 93010; 99283